=== PATIENT | female | born 1950 | race Caucasian/White ===

== ENCOUNTER 2018-12-03 19:50 | Emergency (ER) | payer SELFPAY ==
[~2018-12-03 19:50] MED LIST: LAMO25TA8 PO; LEVO75TA5 PO; TOPI25TA10 PO
[2018-12-04] MEDS ORDERED: VENL150T PO (17:58)
[2018-12-04] MEDS ORDERED: ERGO500013 PO (17:58)
[2018-12-04] MEDS ORDERED: LAMO200T2 PO (17:59)
[2018-12-04] MEDS ORDERED: LOSA100T15 PO (17:59)
[2018-12-04] MEDS ORDERED: RANI300T PO (17:59)
[2018-12-04] MEDS ORDERED: PANT40TA4 PO (17:59)
[2018-12-04] MEDS ORDERED: MONT10TA24 PO (18:00)
[2018-12-04] MEDS ORDERED: CARI1.5C PO (18:00)
[2018-12-04] MEDS ORDERED: LEVO75TA5 PO (18:00)
== END 2018-12-03 20:00 | disposition left against medical advice (07) ==
LOC: E/R 19:50
DX: Z53.21 Procedure and treatment not carried out due to patient leaving prior to being seen by health care provider (principal)

== ENCOUNTER 2018-12-04 17:14 | Inpatient (IN) | payer MEDICARE, OTHER ==
[~2018-12-04] VITALS: Ht 160 cm; Wt 65.5 kg
[2018-12-04 17:19] VITALS: Ht 160 cm; Wt 65.5 kg
[2018-12-04] MEDS ORDERED: PIPER-TAZO 3.375 GM IV (PMX) 100 ML IVPB STA (17:39)
[2018-12-04] MEDS ORDERED: morphine 4 MG/ML VIAL IV STA (17:39)
[2018-12-04] MEDS ORDERED: SOD CHLORIDE 0.9% 1,000 ML IV STA (17:39)
[2018-12-04] MEDS ORDERED: ONDANSETRON 4 MG INJ IV STA (17:39)
[2018-12-04] MEDS ORDERED: ERGO500013 PO (17:58)
[2018-12-04] MEDS ORDERED: VENL150T PO (17:58)
[2018-12-04] MEDS ORDERED: LOSA100T15 PO (17:59)
[2018-12-04] MEDS ORDERED: RANI300T PO (17:59)
[2018-12-04] MEDS ORDERED: LAMO200T2 PO (17:59)
[2018-12-04] MEDS ORDERED: PANT40TA4 PO (17:59)
[2018-12-04] MEDS ORDERED: CARI1.5C PO (18:00)
[2018-12-04] MEDS ORDERED: LEVO75TA5 PO (18:00)
[2018-12-04] MEDS ORDERED: MONT10TA24 PO (18:00)
[2018-12-04] MEDS ORDERED: SOD CHLORIDE 0.9% 100 ML ONE (19:28)
[2018-12-04] MEDS ORDERED: IOHEXOL 300MG/ML 150 ML BTL ONE (19:28)
[2018-12-04] MEDS ORDERED: ACETAMINOPHEN 325 MG TAB PO PRN (20:00)
[2018-12-04] MEDS ORDERED: ONDANSETRON 4 MG INJ IV PRN (20:00)
--- NOTE | 2018-12-04 20:39 | ERD ---
ER Documentation Chief Complaint Chief Complaint abd pain x 4 days , sent by pmd for burst appendix per ct done today HPI 68-year-old female presents to the emergency room with 4 to 5 days of abdominal pain to the right lower quadrant. She did CT today that showed possible perforated appendicitis. The patient notes some mild discomfort that is 5 out of 10 to the right lower quadrant. No significant fevers. Patient describes no significant nausea or vomiting or constipation. No prior abdominal surgical history. ROS All systems reviewed and are negative except as per history of present illness. Medications Home Meds Reported Medications Cariprazine HCl (Vraylar) 1.5 Mg Capsule, 1.5 MG PO DAILY, CAP 12/04/18 Montelukast Sodium* (Montelukast Sodium*) 10 Mg Tablet, 10 MG PO QHS, #30 TAB 12/04/18 Levothyroxine Sodium* (Levothyroxine Sodium*) 75 Mcg Tablet, 75 MCG PO BEFORE BREAKFAST, #30 TAB 12/04/18 Pantoprazole* (Pantoprazole*) 40 Mg Tablet.dr, 40 MG PO AC BREAKFAST, TAB 12/04/18 Lamotrigine* (Lamotrigine*) 200 Mg Tablet, 200 MG PO BID, TAB 12/04/18 Ranitidine Hcl* (Ranitidine Hcl*) 300 Mg Tablet, 300 MG PO HS, #30 TAB 12/04/18 Losartan Potassium* (Losartan Potassium*) 100 Mg Tablet, 100 MG PO DAILY, TAB 12/04/18 Venlafaxine Hcl* (Venlafaxine Hcl ER*) 150 Mg Tab.er.24, 150 MG PO BID, TAB.SA 12/04/18 Ergocalciferol (Vitamin D2) (VITAMIN D2) 50,000 Unit Capsule, 81363 UNIT PO Q SUN, CAP 12/04/18 Discontinued Reported Medications Topiramate* (Topiramate*) 25 Mg Tablet, 50 MG PO QPM 07/19/15 Lamotrigine* (Lamotrigine*) 25 Mg Tablet, 50 MG PO DAILY 07/19/15 Levothyroxine Sodium* (Levothyroxine Sodium*) 75 Mcg Tablet, 75 MCG PO AC BREAKFAST, TAB 05/07/14 Allergies Allergies: Coded Allergies: Sulfa (Sulfonamide Antibiotics) (Verified Allergy, Intermediate, RASH, 12/04/18) PMhx/Soc History of Surgery: Yes (TONSILLECTOMY) Anesthesia Reaction: No Hx Neurological Disorder: No Hx Respiratory Disorders: No Hx Cardiac Disorders: No Hx Psychiatric Problems: Yes (DEPRESSION) Hx Miscellaneous Medical Probl: No Hx Alcohol Use: Yes (1 GLASS OF WINE DAILY) Hx Substance Use: No Hx Tobacco Use: No Smoking Status: Never smoker FmHx Family History: No diabetes Physical Exam Vitals Vital Signs Date Temp Pulse Resp B/P (MAP) Pulse Ox O2 O2 Flow FiO2 Time Delivery Rate 12/04/18 99.0 78 16 129/68 98 Room Air 19:41 (88) 12/04/18 98.5 77 14 113/65 98 Room Air 18:39 (81) 12/04/18 98.1 84 18 140/63 98 17:19 (88) Physical Exam General: Well developed, well nourished, no acute distress Head: Normocephalic, atraumatic. Eyes: Pupils equally reactive, EOM intact ENT: Moist mucous membranes Neck: Supple, no lymphadenopathy Respiratory: Lungs clear bilaterally, no distress Cardiovascular: RRR, no murmurs, rubs, or gallops Abdominal: Soft, focal tenderness and guarding at McBurney's point : Deferred MSK: No edema, no unilateral swelling, 5/5 strength Neurologic: Alert and oriented, moving all extremities, normal speech, no focal weakness, no cerebellar signs Skin: No rash Psych: Normal mood Result Diagram: 12/04/18 1754 12/04/18 175 Results 24 hrs Laboratory Tests Test 12/04/18 17:54 White Blood Count 8.4 10^3/ul Red Blood Count 3.56 10^6/ul Hemoglobin 11.3 g/dl Hematocrit 32.7 % Mean Corpuscular Volume 91.9 fl Mean Corpuscular Hemoglobin 31.7 pg Mean Corpuscular Hemoglobin Concent 34.6 g/dl Red Cell Distribution Width 11.3 % Platelet Count 300 10^3/UL Mean Platelet Volume 9.7 fl Immature Granulocytes % 1.100 % Neutrophils % 69.9 % Lymphocytes % 15.2 % Monocytes % 11.3 % Eosinophils % 1.7 % Basophils % 0.8 % Nucleated Red Blood Cells % 0.0 /100WBC Immature Granulocytes # 0.090 10^3/ul Neutrophils # 5.9 10^3/ul Lymphocytes # 1.3 10^3/ul Monocytes # 1.0 10^3/ul Eosinophils # 0.1 10^3/ul Basophils # 0.1 10^3/ul Nucleated Red Blood Cells # 0.0 10^3/ul Prothrombin Time 13.9 Sec Prothrombin Time Ratio 1.1 INR International Normalized Ratio 1.06 Activated Partial Thromboplast Time 35.6 Sec Sodium Level 135 mmol/L Potassium Level 3.8 mmol/L Chloride Level 100 mmol/L Carbon Dioxide Level 26 mmol/L Anion Gap 9 Blood Urea Nitrogen 14 mg/dl Creatinine 0.66 mg/dl Est Glomerular Filtrat Rate mL/min > 60 mL/min Glucose Level 78 mg/dl Calcium Level 8.8 mg/dl Total Bilirubin 0.5 mg/dl Direct Bilirubin 0.00 mg/dl Indirect Bilirubin 0.5 mg/dl Aspartate Amino Transf (AST/SGOT) 36 IU/L Alanine Aminotransferase (ALT/SGPT) 72 IU/L Alkaline Phosphatase 144 IU/L Total Protein 6.5 g/dl Albumin 3.7 g/dl Globulin 2.80 g/dl Albumin/Globulin Ratio 1.32 Lipase 58 U/L Current Medications Medications Dose Sig/Lori Start Time Status Last (Trade) Ordered Route PRN Stop Time Admin Dose Reason Admin Sodium 1,000 ml @ Q1H STAT 12/04/18 DC 12/04/18 Chloride 1,000 mls/hr IV 17:39 18:23 12/04/18 18:38 Morphine 4 mg ONCE STAT 12/04/18 DC 12/04/18 Sulfate IV 17:39 18:24 (morphine) 12/04/18 17:40 Ondansetron 4 mg ONCE STAT 12/04/18 DC 12/04/18 HCl (Zofran IV 17:39 18:23 Inj) 12/04/18 17:40 Piperacillin 100 ml @ ONCE STAT 12/04/18 DC 12/04/18 Sod/ 200 mls/hr IVPB 17:39 18:24 Tazobactam 12/04/18 18:08 Sod IV Flush 10 ml STK-MED 12/04/18 DC (NS 10 ml) ONCE .ROUTE 19:12/04/18 19:29 Sodium 100 ml @ ud STK-MED 12/04/18 DC Chloride ONCE .ROUTE 19:28 12/04/18 19:29 Iohexol 150 ml STK-MED 12/04/18 DC (Omnipaque ONCE .ROUTE 19:28 300mg/ ml) 12/04/18 19:29 Ondansetron 4 mg BRIDGE ORDER 12/04/18 HCl (Zofran PRN IV 20:00 Inj) NAUSEA/VOMITI 12/05/18 19:59 NG 650 mg ER BRIDGE 12/04/18 Acetaminophen PRN PO 20:00 (Tylenol .MILD PAIN 12/05/18 19:59 Tab) 1-3 OR TEMP Procedures/MDM EKG, MONITORS, & DIAGNOSTIC IMAGING: CT with IV contrast IMPRESSION: Nonvisualization appendix. Right pelvic abscess likely sequela of ruptured appendicitis or right-sided diverticulitis. No gross pneumoperitoneum or ascites. No other collection seen. LAB INTERPRETATION: I reviewed the laboratory testing and it shows [no evidence of acute process] MEDICAL DECISION MAKING: Patient had a CAT scan that was faxed to us showing evidence of possible perforated appendicitis though this was without contrast. Recommendation was for repeat with IV contrast. Patient does have focal tenderness the right lower quadrant. ER COURSE: * Patient was n.p.o. IV fluids and antibiotics provided. CT with IV contrast obtained showing evidence of pelvic abscess likely secondary to perforated appendicitis. * General surgeon was notified, likely IR drainage appropriate. CONSULTATION: : Dr. Finch, General surgeon DISPOSITION PLAN: Medical surgical admission Accepting care team and consultations: I discussed the current laboratory data, diagnostic imaging and emergency care provided. Admitting team: Dr. Castro Admitting team indication: Insurance directed Departure Diagnosis: Primary Impression: Acute perforated appendicitis Condition: Stable VI STOREY MD December 04, 2018 20:39
--- NOTE | 2018-12-04 21:04 | HP ---
Date/Time of Note Date/Time of Note DATE: 12/04/18 TIME: 21:04 Assessment/Plan VTE Prophylaxis SCD applied (from Nsg): Yes Pharmacological prophylaxis: NA/contraindicated Pharm contraindication: low risk/ambulating Lines/Catheters IV Catheter Type (from Nrsg): Saline Lock Assessment/Plan Hospital Course This is a 68-year female being admitted to the [facility] floor for: #1 right lower quadrant pain: CT of the abdomen pelvis shows: Nonvisualization appendix. Right pelvic abscess likely sequela of ruptured appendicitis or right- sided diverticulitis. No gross pneumoperitoneum or ascites. No other collection seen. At the current time we will keep the patient n.p.o. Pain management. Broad-spectrum antibiotics of Zosyn. General surgery is Maco been consulted by the ED. #2 hypertension: We will resume patient's home medications as clinically indicated #3 hypothyroidism: Continue with thyroxine, check TSH #4 GERD: Continue PPI, H2 melissa #5 questionable mood disorder: We will need to confirm with the patient in the a.m. as well as her meds #6 DVT GI prophylaxis: SCDs, home meds Protonix/H2 melissa Further treatment strategy will be implemented as per the clinical course Result Diagram: 12/04/18 1754 12/04/18 1754 Results 24hrs Laboratory Tests Test 12/04/18 17:54 White Blood Count 8.4 Red Blood Count 3.56 L Hemoglobin 11.3 L Hematocrit 32.7 L Mean Corpuscular Volume 91.9 Mean Corpuscular Hemoglobin 31.7 Mean Corpuscular Hemoglobin Concent 34.6 Red Cell Distribution Width 11.3 L Platelet Count 300 Mean Platelet Volume 9.7 Immature Granulocytes % 1.100 H Neutrophils % 69.9 Lymphocytes % 15.2 Monocytes % 11.3 H Eosinophils % 1.7 Basophils % 0.8 Nucleated Red Blood Cells % 0.0 Immature Granulocytes # 0.090 H Neutrophils # 5.9 Lymphocytes # 1.3 Monocytes # 1.0 H Eosinophils # 0.1 Basophils # 0.1 Nucleated Red Blood Cells # 0.0 Prothrombin Time 13.9 Prothrombin Time Ratio 1.1 INR International Normalized Ratio 1.06 Activated Partial Thromboplast Time 35.6 H Sodium Level 135 Potassium Level 3.8 Chloride Level 100 Carbon Dioxide Level 26 Anion Gap 9 Blood Urea Nitrogen 14 Creatinine 0.66 Est Glomerular Filtrat Rate mL/min > 60 Glucose Level 78 Calcium Level 8.8 Total Bilirubin 0.5 Direct Bilirubin 0.00 Indirect Bilirubin 0.5 Aspartate Amino Transf (AST/SGOT) 36 Alanine Aminotransferase (ALT/SGPT) 72 H Alkaline Phosphatase 144 H Total Protein 6.5 Albumin 3.7 Globulin 2.80 Albumin/Globulin Ratio 1.32 Lipase 58 HPI/ROS Admit Date/Time Admit Date/Time Hx of Present Illness Chief complaint: Abdominal pain since last , fevers This is a six 8-year female who presented to the emergency department with complaints of abdominal pain since last . Patient pain on the right lower quadrant. She reported that she also developed some fevers. She followed up with her primary care doctor who recommended to have a CT done. The CT that was done showed possible perforated appendicitis. Patient did report mild discomfort that is 5 out of 10 in her right lower quadrant and she also had some referred pain on her left side as well. She denied any vaginal bleeding or nausea vomiting or diarrhea. Allergies: Sulfa Medications: See RACHAEL Const: As per HPI Eyes : No pain discharge or redness or change in visual acuity ENT: No pain, sore throat, congestion, congestion, dysphagia or discharge Respiratory: No shortness of breath, cough, sputum, wheezing, or pleuritic pain Cardiovascular: No chest pain, palpitation, PND, or edema GI : As per HPI Genitourinary: No dysuria, hematuria, flank pain , discharge or CVA tenderness Musculoskeletal: No joint pain, back pain, neck pain, restricted range of motion in neck or joints Skin: No rash, bruising or hives Neuro: No headache, dizziness, syncope, seizure, focal weakness Endocrine: No polyuria, polydipsia, temperature intolerance Psych: No hallucination, depression, anxiety or suicidal ideation PMH/Family/Social Past Medical History Hypertension, hypothyroidism, GERD, Medications Current Medications Ondansetron HCl (Zofran Inj) 4 mg BRIDGE ORDER PRN IV NAUSEA/VOMITING; Start 12/04/18 at 20:00; Stop 12/05/18 at 19:59 Acetaminophen (Tylenol Tab) 650 mg ER BRIDGE PRN PO .MILD PAIN 1-3 OR TEMP; Start 12/04/18 at 20:00; Stop 12/05/18 at 19:59 Coded Allergies: Sulfa (Sulfonamide Antibiotics) (Verified Allergy, Intermediate, RASH, 12/04/18) piperacillin (Verified Allergy, Unknown, 12/05/18) tazobactam (Verified Allergy, Unknown, 12/05/18) Past Surgical History Cervical spine surgery, right knee surgery Family History Significant Family History: no pertinent family hx Social History Alcohol Use: none Smoking Status: Never smoker Drug Use: none Exam/Review of Systems Vital Signs Vitals Vital Signs Date Temp Pulse Resp B/P (MAP) Pulse Ox O2 O2 Flow FiO2 Time Delivery Rate 12/04/18 17 114/78 100 Room Air 20:41 (90) 12/04/18 99.0 78 19:41 Exam Exam General: Patient is currently lying in bed she does not appear to be in any acute distress The patient is alert oriented -3 lying comfortably in bed. HEENT: Atraumatic, normocephalic. The pupils are equal, round and reactive. Extraocular motor are intact Neck: Supple with full range of motion. No rigidity or meningismus Chest: Nontender Lungs: Clear to auscultation bilaterally no crackles rales or wheezing Heart: Normal S1-S2, Regular rhythm and rate. No murmur, S3, or S4 Abdomen: Soft, right lower quadrant tenderness palpation, mild guarding, normal bowel sounds. Extremities: Normal to inspection, no edema no cyanosis Neurologic: Normal mental status, speech normal, cranial nerves II through XII are intact, motor and sensory are intact, Additional Comments PROCEDURE: CT abdomen and pelvis with contrast. CLINICAL INDICATION: Abdominal pain. Ruptured appendicitis. TECHNIQUE: CT scan of the abdomen and pelvis without oral contrast was performed and is reconstructed at 2.5 mm contiguous axial intervals from the dome of the diaphragm to the inferior pubic rami.. The patient was scanned with intravenous contrast. Sagittal and coronal reformatted images were obtained from the axial source images. The calculated radiation dose measures 367 mGy centimeters. The CTDI measures 7.0 mGy. Individualized dose optimization technique was used for the performance of this exam. This included 1. Automated exposure control. 2. Adjustment of the mA and / or kV according to the patient's size. 3. Use of iterative reconstructed technique. DICOM images are available. COMPARISON: None. FINDINGS: The lung bases are clear of any infiltrate or nodule. No effusion is seen. Patient is status post bilateral augmentation mammoplasty. The liver is of normal size, contour and attenuation with no mass or ductal dilatation. No gallstones are visualized. No splenic, adrenal or pancreatic abnormalities present. Kidneys are of normal size and contour. No hydronephrosis, calculus or mass Is seen. Ureters are of normal course and caliber with no stone. No bladder mass or stone is present. there is a calcified fibroid within an atrophic postmenopausal uterus. There is no aneurysm. No adenopathy is present. No bowel mass or obstruction is present. The appendix is not visualized. There is an abscess posterior lateral to the cecum and the right radha pelvis which measures 4 cm TR by 4.5 cm AP by 4.5 cm CC. There is stranding of the surrounding fat. This most likely represents sequela of ruptured appendicitis, however, perforation of right-sided diverticulitis cannot be ruled out. No other abscess is seen and no ascites or pneumoperitoneum is visualized. Senescent degenerative changes are seen in the lower lumbar spine. IMPRESSION: Nonvisualization appendix. Right pelvic abscess likely sequela of ruptured appendicitis or right-sided diverticulitis. No gross pneumoperitoneum or as cites. No other collection seen. .Cornelio Rowe MD, MD Date Time Electronically viewed and signed by .Cornelio Rowe MD, on 12/04/2018 19:37 .A/ CC: VI STOREY MD [id number] SAJAN GRADY December 04, 2018 21:04
--- NOTE | 2018-12-04 21:21 | CONS ---
Assessment/Plan Assessment/Plan Hospital Course (Demo Recall) CT scan showed 4.5 x 4.5 x 4.5 collection in the right lower quadrant consistent with perforated appendicitis possible perforated diverticulitis. No other intra-abdominal pathology no free fluid no free air. White count was found to be normal. Problems: (1) Abscess, periappendiceal Status: Acute Assessment/Plan (Daily) Periappendiceal abscess patient will benefit from percutaneous drainage by invasive radiologist. We discussed other options like possibility of surgery if drainage does not succeed. Patient understands risk and benefits. Will probably need to repeat colonoscopy in few weeks. We discussed the possibility of interval appendectomy as well. We will keep n.p.o. from midnight meanwhile patient cannot get clears. Antibiotics started. Consultation Date/Type/Reason Admit Date/Time Date of Consultation: December 04, 2018 Type of Consult Surgical Date/Time of Note DATE: 12/04/18 TIME: 21:12 Hx of Present Illness The patient is a 68-year-old female started to experience mild right lower quadrant discomfort more than 10 days ago. 6 days ago she started to feel really bad with significant right lower quadrant pain chills and fever. She self medicated herself with the ibuprofen for the next few days, but after consulting with her primary care physician Dr. Alcantara she was advised to undergo CT scan of the abdomen. CT scan was initially performed yesterday without contrast and showed the mass in the right lower quadrant. Dr. Alcantara suggested her to go to emergency room as soon as possible. Patient was admitted to the emergency room with CT scan was repeated that showed large abscess in the right lower quadrant consistent with periappendicular abscess. Constitutional: chills, febrile Eyes: no complaints ENT: no complaints Respiratory: no complaints Cardiovascular: no complaints Gastrointestinal: pain, other (Last colonoscopy was 2 years ago which was reportedly normal) Genitourinary: no complaints Musculoskeletal: back pain, neck pain, restricted range of motion Skin: no complaints Neurologic: no complaints Endocrine: no complaints Lymphatic: no complaints Psychological: no complaints, nl mood/affect Immunologic: no complaints Past Medical History Medical History: other (Chronic cervical spine problems) Home Meds Reported Medications Cariprazine HCl (Vraylar) 1.5 Mg Capsule, 1.5 MG PO DAILY, CAP 12/04/18 Montelukast Sodium* (Montelukast Sodium*) 10 Mg Tablet, 10 MG PO QHS, #30 TAB 12/04/18 Levothyroxine Sodium* (Levothyroxine Sodium*) 75 Mcg Tablet, 75 MCG PO BEFORE BREAKFAST, #30 TAB 12/04/18 Pantoprazole* (Pantoprazole*) 40 Mg Tablet.dr, 40 MG PO AC BREAKFAST, TAB 12/04/18 Lamotrigine* (Lamotrigine*) 200 Mg Tablet, 200 MG PO BID, TAB 12/04/18 Ranitidine Hcl* (Ranitidine Hcl*) 300 Mg Tablet, 300 MG PO HS, #30 TAB 12/04/18 Losartan Potassium* (Losartan Potassium*) 100 Mg Tablet, 100 MG PO DAILY, TAB 12/04/18 Venlafaxine Hcl* (Venlafaxine Hcl ER*) 150 Mg Tab.er.24, 150 MG PO BID, TAB.SA 12/04/18 Ergocalciferol (Vitamin D2) (VITAMIN D2) 50,000 Unit Capsule, 97303 UNIT PO Q SUN, CAP 12/04/18 Discontinued Reported Medications Topiramate* (Topiramate*) 25 Mg Tablet, 50 MG PO QPM 07/19/15 Lamotrigine* (Lamotrigine*) 25 Mg Tablet, 50 MG PO DAILY 07/19/15 Levothyroxine Sodium* (Levothyroxine Sodium*) 75 Mcg Tablet, 75 MCG PO AC BREAKFAST, TAB 05/07/14 Medications Current Medications Ondansetron HCl (Zofran Inj) 4 mg BRIDGE ORDER PRN IV NAUSEA/VOMITING; Start 12/04/18 at 20:00; Stop 12/05/18 at 19:59 Acetaminophen (Tylenol Tab) 650 mg ER BRIDGE PRN PO .MILD PAIN 1-3 OR TEMP; Start 12/04/18 at 20:00; Stop 12/05/18 at 19:59 Sodium Chloride 1,000 ml @ 80 mls/hr [id number] IV ; Start 12/04/18 at 21:02; Status UNV IV Flush (NS 3 ml) 3 ml PER PROTOCOL IV ; Start 12/04/18 at 21:30; Status UNV Ondansetron HCl (Zofran Inj) 4 mg Q6H PRN IV NAUSEA/VOMITING; Start 12/04/18 at 21:30; Status UNV Acetaminophen (Tylenol Tab) 650 mg Q6H PRN PO .PAIN 1-3 OR TEMP; Start 12/04/18 at 21:30; Status UNV Morphine Sulfate (morphine) 2 mg Q4H PRN IV .SEVERE PAIN 7-10; Start 12/04/18 at 21:30; Status UNV Docusate Sodium (Colace) 100 mg Q12H PRN PO .CONSTIPATION; Start 12/04/18 at 21:30; Status UNV Bisacodyl (Dulcolax) 5 mg DAILY PRN PO .CONSTIPATION; Start 12/04/18 at 21:30; Status UNV Piperacillin Sod/ Tazobactam Sod 100 ml @ 200 mls/hr Q6 IVPB ; Start 12/05/18 at 00:00; Status UNV Allergies: Coded Allergies: Sulfa (Sulfonamide Antibiotics) (Verified Allergy, Intermediate, RASH, 12/04/18) Past Surgical History Past Surgical Hx: noncontributory Family History Significant Family History: other (Patient has 3 brothers all of them from colon cancer.) Social History Smoking Status: Never smoker Exam/Review of Systems Exam Vitals Vital Signs Date Temp Pulse Resp B/P (MAP) Pulse Ox O2 O2 Flow FiO2 Time Delivery Rate 12/04/18 92 14 129/91 100 Room Air 21:09 (104) 12/04/18 99.0 19:41 Constitutional: alert, oriented, well developed Psych: no complaints, nl mood/affect Head: normocephalic, atraumatic Eyes: nl conjunctiva, EOMI, nl lids, nl sclera, PERRL ENMT: nl external ears & nose, nl lips & teeth, nl nasal mucosa & septum Neck: supple, non-tender Respiratory: clear to auscultation, normal air movement Cardiovascular: regular rate and rhythm, nl pulses Gastrointestinal: soft, nl liver, spleen, other (Mild fullness and tenderness in the right lower quadrant without peritoneal signs) Musculoskeletal: nl extremities to inspection, nl gait and stance Extremities: normal pulses Neurological: QUALITY LAB ASSOC II-XII intact, nl mental status, nl speech, nl strength Skin: nl turgor; No rash or lesions Lymph: nl lymph nodes Results Result Diagram: 12/04/18 1754 12/04/18 1754 Results 24hrs Laboratory Tests Test 12/04/18 17:54 White Blood Count 8.4 Red Blood Count 3.56 L Hemoglobin 11.3 L Hematocrit 32.7 L Mean Corpuscular Volume 91.9 Mean Corpuscular Hemoglobin 31.7 Mean Corpuscular Hemoglobin Concent 34.6 Red Cell Distribution Width 11.3 L Platelet Count 300 Mean Platelet Volume 9.7 Immature Granulocytes % 1.100 H Neutrophils % 69.9 Lymphocytes % 15.2 Monocytes % 11.3 H Eosinophils % 1.7 Basophils % 0.8 Nucleated Red Blood Cells % 0.0 Immature Granulocytes # 0.090 H Neutrophils # 5.9 Lymphocytes # 1.3 Monocytes # 1.0 H Eosinophils # 0.1 Basophils # 0.1 Nucleated Red Blood Cells # 0.0 Prothrombin Time 13.9 Prothrombin Time Ratio 1.1 INR International Normalized Ratio 1.06 Activated Partial Thromboplast Time 35.6 H Sodium Level 135 Potassium Level 3.8 Chloride Level 100 Carbon Dioxide Level 26 Anion Gap 9 Blood Urea Nitrogen 14 Creatinine 0.66 Est Glomerular Filtrat Rate mL/min > 60 Glucose Level 78 Calcium Level 8.8 Total Bilirubin 0.5 Direct Bilirubin 0.00 Indirect Bilirubin 0.5 Aspartate Amino Transf (AST/SGOT) 36 Alanine Aminotransferase (ALT/SGPT) 72 H Alkaline Phosphatase 144 H Total Protein 6.5 Albumin 3.7 Globulin 2.80 Albumin/Globulin Ratio 1.32 Lipase 58 Medications Medication Current Medications Ondansetron HCl (Zofran Inj) 4 mg BRIDGE ORDER PRN IV NAUSEA/VOMITING; Start 12/04/18 at 20:00; Stop 12/05/18 at 19:59 Acetaminophen (Tylenol Tab) 650 mg ER BRIDGE PRN PO .MILD PAIN 1-3 OR TEMP; Start 12/04/18 at 20:00; Stop 12/05/18 at 19:59 Sodium Chloride 1,000 ml @ 80 mls/hr [id number] IV ; Start 12/04/18 at 21:02; Status UNV IV Flush (NS 3 ml) 3 ml PER PROTOCOL IV ; Start 12/04/18 at 21:30; Status UNV Ondansetron HCl (Zofran Inj) 4 mg Q6H PRN IV NAUSEA/VOMITING; Start 12/04/18 at 21:30; Status UNV Acetaminophen (Tylenol Tab) 650 mg Q6H PRN PO .PAIN 1-3 OR TEMP; Start 12/04/18 at 21:30; Status UNV Morphine Sulfate (morphine) 2 mg Q4H PRN IV .SEVERE PAIN 7-10; Start 12/04/18 at 21:30; Status UNV Docusate Sodium (Colace) 100 mg Q12H PRN PO .CONSTIPATION; Start 12/04/18 at 21:30; Status UNV Bisacodyl (Dulcolax) 5 mg DAILY PRN PO .CONSTIPATION; Start 12/04/18 at 21:30; Status UNV Piperacillin Sod/ Tazobactam Sod 100 ml @ 200 mls/hr Q6 IVPB ; Start 12/05/18 at 00:00; Status UNV DINORA DAHL MD December 04, 2018 21:21
[2018-12-04 21:25] VITALS: BP 144/66; PULSE 92; RESP 19
[2018-12-04] MEDS ORDERED: BISACODYL (EC) 5 MG TAB PO PRN (21:30)
[2018-12-04] MEDS ORDERED: NACL 0.9% 3 ML SYG IV SCH (21:30)
[2018-12-04] MEDS ORDERED: morphine 2 MG INJ IV PRN (21:30)
[2018-12-04] MEDS ORDERED: DOCUSATE SODIUM 100 MG CAP PO PRN (21:30)
[2018-12-04] MEDS: SOD CHLORIDE 0.9% 1,000 ML IV SCH (22:28)
[2018-12-05] MEDS: PIPER-TAZO 3.375 GM IV (PMX) 100 ML IVPB SCH ×2 (00:15→05:31)
[2018-12-05 02:00] VITALS: BP 130/68; PULSE 89; RESP 18
[2018-12-05] MEDS: morphine 4 MG/ML VIAL IV PRN ×4 (03:15→20:34)
[2018-12-05] MEDS ORDERED: ALBUTEROL/IPRATROPIUM (NEB) 3 ML AMP HHN STA (06:04)
[2018-12-05] MEDS ORDERED: METHYLPREDNISOLONE 125 MG INJ IV ONE (06:30)
[2018-12-05] MEDS ORDERED: FAMOTIDINE 20 MG INJ IV ONE (06:30)
[2018-12-05] MEDS ORDERED: DIPHENHYDRAMINE 50 MG INJ IV ONE (06:30)
[2018-12-05] MEDS: metroNIDAZOLE 500 MG/NS (PMX) 100 ML IVPB SCH ×4 (08:14→18:05)
[2018-12-05 08:48] VITALS: BP 108/53; PULSE 98; RESP 20
[2018-12-05] MEDS ORDERED: FAMOTIDINE 20 MG INJ IV SCH (09:00)
[2018-12-05] MEDS: CIPROFLOXACIN 400MG/D5W 200 ML IVPB SCH ×2 (09:21→20:31)
[2018-12-05] MEDS ORDERED: DIPHENHYDRAMINE 50 MG INJ IV PRN (11:00)
--- NOTE | 2018-12-05 11:28 | PN ---
Date/Time of Note Date/Time of Note DATE: 12/05/18 TIME: 11:28 Assessment/Plan VTE Prophylaxis Risk score (from Nsg)>0 risk: 2 SCD applied (from Nsg): Yes Pharmacological prophylaxis: NA/contraindicated Pharm contraindication: low risk/ambulating Lines/Catheters IV Catheter Type (from Nrsg): Peripheral IV Assessment/Plan Hospital Course SUBJECTIVE: OBJECTIVE: Physical Exam General: Adequately build 68 year-old male lying in bed in no apparent distress. HEENT: Normocephalic, atraumatic. Eyes: Anicteric sclerae, conjunctivae clear. ENT: Nasal septum midline, oral mucosa moist. Neck supple, no JVD noticed. Respiratory: Bilaterally clear breath sounds. No use of accessory muscles of respiration. No adventitious breath sounds. Cardiovascular: S1, S2 heard. No murmurs or gallops. Abdomen: Soft and nondistended. Tenderness on the RLQ with abdominal guarding. Bowel sounds positive in all 4 quadrants. Genitourinary: Deferred. Extremities: No cyanosis, no clubbing, no edema. Peripheral pulses palpable. Neurologic: Cranial nerves II through XII grossly intact. The patient is awake, alert, and oriented. Skin: Normal skin turgor. No skin rashes. Labs & Vitals per chart ASSESSMENT & PLAN 68-year-old female with comorbidities including hypertension, hypothyroidism, and depression who came to the emergency room with chief complaint of abdominal pain. The patient visited her primary care physician for the same complaint and she had a CT scan done that showed possible perforated appendicitis. Therefore, she was referred to the emergency room. The CT scan that was done at [facility] showed right pelvic abscess likely from perforated appendicitis or right-sided diverticulitis. Patient also complained of febrile illness at home. The patient was admitted to inpatient setting. 1. Right pelvic abscess. -Status post evaluation by general surgery who recommended IR guided drainage. -Continue antimicrobials including coverage for anaerobes. -NPO. -Continue pain control. -Continue IV fluids. 2. Essential hypertension. -Continue the patient on PRN antihypertensives. 3. Hypothyroidism. -Resume Synthroid once the patient is able to tolerate oral intake. 4. GERD. -Resume oral PPI once able to tolerate oral intake. 5. Depression. -Resume antidepressants once able to tolerate oral intake. 6. Fluids, electrolytes, and nutrition. -IV fluids. 7. DVT prophylaxis. -Bilateral SCDs. 8. Plan. -Continue antimicrobials including coverage for anaerobes. -Awaiting CT guided IR drainage. The patient was seen in collaboration with . Result Diagram: 12/05/1823 12/05/18 0623 Results 24hrs Laboratory Tests Test 12/04/18 17:54 12/05/18 06:23 White Blood Count 8.4 9.3 Red Blood Count 3.56 L 3.68 L Hemoglobin 11.3 L 11.5 L Hematocrit 32.7 L 34.0 L Mean Corpuscular Volume 91.9 92.4 Mean Corpuscular Hemoglobin 31.7 31.3 Mean Corpuscular Hemoglobin Concent 34.6 33.8 Red Cell Distribution Width 11.3 L 11.6 Platelet Count 300 327 Mean Platelet Volume 9.7 10.1 Immature Granulocytes % 1.100 H 0.600 H Neutrophils % 69.9 71.4 Lymphocytes % 15.2 16.0 Monocytes % 11.3 H 10.5 Eosinophils % 1.7 1.1 Basophils % 0.8 0.4 Nucleated Red Blood Cells % 0.0 0.0 Immature Granulocytes # 0.090 H 0.060 H Neutrophils # 5.9 6.7 Lymphocytes # 1.3 1.5 Monocytes # 1.0 H 1.0 H Eosinophils # 0.1 0.1 Basophils # 0.1 0.0 Nucleated Red Blood Cells # 0.0 0.0 Prothrombin Time 13.9 Prothrombin Time Ratio 1.1 INR International Normalized Ratio 1.06 Activated Partial Thromboplast Time 35.6 H Sodium Level 135 139 Potassium Level 3.8 3.7 Chloride Level 100 106 Carbon Dioxide Level 26 26 Anion Gap 9 7 Blood Urea Nitrogen 14 9 Creatinine 0.66 0.67 Est Glomerular Filtrat Rate mL/min > 60 > 60 Glucose Level 78 92 Calcium Level 8.8 8.2 L Total Bilirubin 0.5 0.5 Direct Bilirubin 0.00 0.00 Indirect Bilirubin 0.5 0.5 Aspartate Amino Transf (AST/SGOT) 36 26 Alanine Aminotransferase (ALT/SGPT) 72 H 58 Alkaline Phosphatase 144 H 136 H Total Protein 6.5 6.1 Albumin 3.7 3.4 Globulin 2.80 2.70 Albumin/Globulin Ratio 1.32 1.25 Lipase 58 Hemoglobin A1c 4.8 Magnesium Level 2.0 Triglycerides Level 75 Cholesterol Level 107 LDL Cholesterol, Calculated 66 HDL Cholesterol 26 L Cholesterol/HDL Ratio 4.1 Thyroid Stimulating Hormone (TSH) 0.533 Exam/Review of Systems Exam Vitals Vital Signs Date Temp Pulse Resp B/P (MAP) Pulse Ox O2 O2 Flow FiO2 Time Delivery Rate 12/05/18 98.0 98 20 108/53 92 Nasal 2.0 08:48 (71) Cannula 12/05/18 21 06:18 Intake and Output 12/04/18 12/04/18 12/05/18 1515:00 23:00 07:00 IntakeIntake Total 600 ml BalanceBalance 600 ml Results Results 24hrs Laboratory Tests Test 12/04/18 17:54 12/05/18 06:23 White Blood Count 8.4 9.3 Red Blood Count 3.56 L 3.68 L Hemoglobin 11.3 L 11.5 L Hematocrit 32.7 L 34.0 L Mean Corpuscular Volume 91.9 92.4 Mean Corpuscular Hemoglobin 31.7 31.3 Mean Corpuscular Hemoglobin Concent 34.6 33.8 Red Cell Distribution Width 11.3 L 11.6 Platelet Count 300 327 Mean Platelet Volume 9.7 10.1 Immature Granulocytes % 1.100 H 0.600 H Neutrophils % 69.9 71.4 Lymphocytes % 15.2 16.0 Monocytes % 11.3 H 10.5 Eosinophils % 1.7 1.1 Basophils % 0.8 0.4 Nucleated Red Blood Cells % 0.0 0.0 Immature Granulocytes # 0.090 H 0.060 H Neutrophils # 5.9 6.7 Lymphocytes # 1.3 1.5 Monocytes # 1.0 H 1.0 H Eosinophils # 0.1 0.1 Basophils # 0.1 0.0 Nucleated Red Blood Cells # 0.0 0.0 Prothrombin Time 13.9 Prothrombin Time Ratio 1.1 INR International Normalized Ratio 1.06 Activated Partial Thromboplast Time 35.6 H Sodium Level 135 139 Potassium Level 3.8 3.7 Chloride Level 100 106 Carbon Dioxide Level 26 26 Anion Gap 9 7 Blood Urea Nitrogen 14 9 Creatinine 0.66 0.67 Est Glomerular Filtrat Rate mL/min > 60 > 60 Glucose Level 78 92 Calcium Level 8.8 8.2 L Total Bilirubin 0.5 0.5 Direct Bilirubin 0.00 0.00 Indirect Bilirubin 0.5 0.5 Aspartate Amino Transf (AST/SGOT) 36 26 Alanine Aminotransferase (ALT/SGPT) 72 H 58 Alkaline Phosphatase 144 H 136 H Total Protein 6.5 6.1 Albumin 3.7 3.4 Globulin 2.80 2.70 Albumin/Globulin Ratio 1.32 1.25 Lipase 58 Hemoglobin A1c 4.8 Magnesium Level 2.0 Triglycerides Level 75 Cholesterol Level 107 LDL Cholesterol, Calculated 66 HDL Cholesterol 26 L Cholesterol/HDL Ratio 4.1 Thyroid Stimulating Hormone (TSH) 0.533 Medications Medication Current Medications Sodium Chloride 1,000 ml @ 80 mls/hr [id number] IV Last administered on 12/04/18at 22:28; Admin Dose 80 MLS/HR; Start 12/04/18 at 21:02 IV Flush (NS 3 ml) 3 ml PER PROTOCOL IV ; Start 12/04/18 at 21:30 Ondansetron HCl (Zofran Inj) 4 mg Q6H PRN IV NAUSEA/VOMITING; Start 12/04/18 at 21:30 Acetaminophen (Tylenol Tab) 650 mg Q6H PRN PO .PAIN 1-3 OR TEMP; Start 12/04/18 at 21:30 Docusate Sodium (Colace) 100 mg Q12H PRN PO .CONSTIPATION; Start 12/04/18 at 21:30 Bisacodyl (Dulcolax) 5 mg DAILY PRN PO .CONSTIPATION; Start 12/04/18 at 21:30 Morphine Sulfate (morphine) 4 mg Q4H PRN IV .SEVERE PAIN 7-10 Last administered on 12/05/18at 09:21; Admin Dose 4 MG; Start 12/04/18 at 21:30 Miscellaneous Information Patients own medicat... BID@10,16 XX ; Start 12/05/18 at 10:00 Diphenhydramine HCl (Benadryl) 50 mg Q6H PRN IV ALLERGIC REACTION; Start 12/05/18 at 11:00 Ciprofloxacin/ Dextrose 200 ml @ 200 mls/hr Q12 IVPB Last administered on 12/05/18at 09:21; Admin Dose 200 MLS/HR; Start 12/05/18 at 09:00 Metronidazole 100 ml @ 100 mls/hr Q6 IVPB Last administered on 12/05/18at 08:14; Admin Dose 100 MLS/HR; Start 12/05/18 at 08:00 Levothyroxine Sodium (Synthroid) 75 mcg BEFORE BREAKFAST PO ; Start 12/06/18 at 07:00 Pantoprazole (Protonix Tab) 40 mg AC BREAKFAST PO ; Start 12/06/18 at 07:30 Ranitidine HCl (Zantac) 300 mg HS PO ; Start 12/05/18 at 21:00 STEVAN ZHANG NP December 05, 2018 11:28
[2018-12-05] MEDS ORDERED: MIDAZOLAM 1 MG/ML 2 ML INJ ONE (11:31)
[2018-12-05] MEDS ORDERED: LIDOCAINE 1% (MDV) 20 ML INJ ONE (11:31)
[2018-12-05] MEDS ORDERED: SOD CHLORIDE 0.9% 500 ML ONE (11:31)
[2018-12-05] MEDS ORDERED: FENTAnyl 50 MCG/ML VIAL ONE (11:31)
[2018-12-05] MEDS ORDERED: hydrALAzine 20 MG INJ IV PRN (12:00)
[2018-12-05] MEDS ORDERED: LIDOCAINE 1% (MPF) 5 ML VIAL ONE (12:14)
[2018-12-05 13:45] VITALS: BP 105/59; PULSE 64; RESP 16
[2018-12-05] MEDS: SOD CHLORIDE 0.9% 1,000 ML IV SCH ×2 (13:59→22:02)
--- NOTE | 2018-12-05 15:51 | PN ---
Date/Time of Note Date/Time of Note DATE: 12/05/18 TIME: 15:50 Assessment/Plan Lines/Catheters IV C[facility]ter Type (from [facility]): Peripheral IV Assessment/Plan Chief Complaint/Hosp Course 68-year-old female with a periappendiceal abscess was drained today under CT guidance. Assessment/Plan Plan is to advance diet continue antibiotics monitor the output of the drain Subjective 24 Hr Interval Summary Patient with a periappendiceal abscess was CT-guided drainage today. Constitutional: no complaints Feeding: advancing diet Exam/Review of Systems Vital Signs Vitals Vital Signs Date Temp Pulse Resp B/P (MAP) Pulse Ox O2 O2 Flow FiO2 Time Delivery Rate 12/05/18 97.8 64 16 105/59 96 Room Air 13:45 (74) 12/05/18 2.0 08:48 12/05/18 21 06:18 Intake and Output 12/04/18 12/04/18 12/05/18 1515:00 23:00 07:00 IntakeIntake Total 600 ml BalanceBalance 600 ml Exam Constitutional: alert, oriented, well developed Psych: no complaints, nl mood/affect Head: normocephalic, atraumatic Eyes: nl conjunctiva, EOMI, nl lids, nl sclera ENMT: nl external ears & nose, nl lips & teeth, nl nasal mucosa & septum, mucosa pink and moist Neck: supple, non-tender Respiratory: clear to auscultation, normal air movement Cardiovascular: regular rate and rhythm, nl pulses Gastrointestinal: soft, nl liver, spleen, non-tender, other (Drain in the right lower quadrant drains serosanguineous) Musculoskeletal: nl extremities to inspection, nl gait and stance Extremities: normal pulses Neurological: UG DESIGNER II-XII intact, nl mental status, nl speech, nl strength Skin: nl turgor, rash or lesions Lymph: nl lymph nodes Results Result Diagram: 12/05/1862212/05/18622 DNIORA DAHL MD December 05, 2018 15:51
[2018-12-05 19:50] VITALS: BP 100/57; PULSE 97; RESP 17
[2018-12-05] MEDS: RANITIDINE 150 MG TAB PO SCH (20:32)
[2018-12-05] MEDS ORDERED: HYDROmorphONE 1 MG/ML SYG IV PRN (23:00)
[2018-12-06] MEDS: LAMOTRIGINE 100 MG TAB PO SCH ×3 (00:26→21:00)
[2018-12-06] MEDS: metroNIDAZOLE 500 MG/NS (PMX) 100 ML IVPB SCH ×4 (00:27→17:25)
[2018-12-06] MEDS: VENLAFAXINE (XR) 75 MG CAP PO SCH ×3 (00:27→21:00)
[2018-12-06 02:10] VITALS: BP 105/58; PULSE 81; RESP 18
[2018-12-06] MEDS: ONDANSETRON 4 MG INJ IV PRN ×2 (02:23→22:30)
[2018-12-06] MEDS: SOD CHLORIDE 0.9% 1,000 ML IV SCH ×2 (06:15→23:02)
[2018-12-06] MEDS: PANTOPRAZOLE (EC) 40 MG TAB PO SCH (06:31)
[2018-12-06] MEDS: LEVOTHYROXINE 75 MCG TAB PO SCH (06:31)
[2018-12-06 07:32] VITALS: BP 110/56; PULSE 82; RESP 17
[2018-12-06] MEDS: CIPROFLOXACIN 400MG/D5W 200 ML IVPB SCH ×2 (09:12→21:04)
--- NOTE | 2018-12-06 11:27 | PSY ---
Date/Time of Note Date/Time of Note DATE: 12/06/18 TIME: 11:11 Psychiatric Subjective Eval Consent Pt consented to telemedicine: No Subjective Evaluation Patient location: inpatient Chief Complaint: abd pain x 4 days , sent by pmd for burst appendix per ct done today History of present illness Patient is a 68-year old female who is currently admitted on [facility] with complaints of abdominal pain, on the right lower quadrant. On a [id number] evaluation, patient reports she has a long history of depression and has been treated by her outside psychiatrist with Effexor Lamictal and a new experimental drug.Patient denies suicidal ideation, and contracted for safety, states her symptoms of depression is managed with her current medications. Past psychiatric history Long history of depression Hospitalization: other Medical history Problems Medical Problems: (1) Acute perforated appendicitis Status: Acute (2) Headache Status: Acute (3) Laceration Status: Acute (4) Patient left before triage assessment Status: Acute (5) Patient left without being seen Status: Acute Allergies: Coded Allergies: Sulfa (Sulfonamide Antibiotics) (Verified Allergy, Intermediate, RASH, 12/04/18) piperacillin (Verified Allergy, Unknown, 12/05/18) tazobactam (Verified Allergy, Unknown, 12/05/18) Substance Abuse Substance use: other Substance abuse history: No Prior substance abuse treatmen: No Social History Marital status: other DPA/Conservatorship: No Psychiatric Objective Eval Review of Systems: Review of Systems: Not Applicable Physical Examination: Physical Examination: Not Applicable Mental Status Examination: Appearance: Poor Hygiene Eye Contact: Fair Psychomotor Activity: Slow Behavior: Cooperative Speech: Clear, Soft AFFECT: Flat Mood: Depressed Though Process: Linear Thought Content: Normal Orientation: x4 Cognition: Alert Insight: Mild Judgement: Mild Attention Span: Distractible Laboratory Results Laboratory Tests Test 12/04/18 17:54 12/05/18 06:23 12/06/18 06:47 White Blood Count 8.4 10^3/ul 9.3 10^3/ul 14.3 10^3/ul Red Blood Count 3.56 10^6/ul 3.68 10^6/ul 3.27 10^6/ul Hemoglobin 11.3 g/dl 11.5 g/dl 10.4 g/dl Hematocrit 32.7 % 34.0 % 30.3 % Mean Corpuscular Volume 91.9 fl 92.4 fl 92.7 fl Mean Corpuscular Hemoglobin 31.7 pg 31.3 pg 31.8 pg Mean Corpuscular 34.6 g/dl 33.8 g/dl 34.3 g/dl Hemoglobin Concent Red Cell Distribution Width 11.3 % 11.6 % 11.5 % Platelet Count 300 10^3/UL 327 10^3/UL 319 10^3/UL Mean Platelet Volume 9.7 fl 10.1 fl 9.9 fl Immature Granulocytes % 1.100 % 0.600 % 0.700 % Neutrophils % 69.9 % 71.4 % 82.4 % Lymphocytes % 15.2 % 16.0 % 9.3 % Monocytes % 11.3 % 10.5 % 6.8 % Eosinophils % 1.7 % 1.1 % 0.2 % Basophils % 0.8 % 0.4 % 0.6 % Nucleated Red Blood Cells % 0.0 /100WBC 0.0 /100WBC 0.0 /100WBC Immature Granulocytes # 0.090 10^3/ul 0.060 10^3/ul 0.100 10^3/ul Neutrophils # 5.9 10^3/ul 6.7 10^3/ul 11.8 10^3/ul Lymphocytes # 1.3 10^3/ul 1.5 10^3/ul 1.3 10^3/ul Monocytes # 1.0 10^3/ul 1.0 10^3/ul 1.0 10^3/ul Eosinophils # 0.1 10^3/ul 0.1 10^3/ul 0.0 10^3/ul Basophils # 0.1 10^3/ul 0.0 10^3/ul 0.1 10^3/ul Nucleated Red Blood Cells # 0.0 10^3/ul 0.0 10^3/ul 0.0 10^3/ul Prothrombin Time 13.9 Sec Prothrombin Time Ratio 1.1 INR International 1.06 Normalized Ratio Activated Partial Thromboplast 35.6 Sec Time Sodium Level 135 mmol/L 139 mmol/L 141 mmol/L Potassium Level 3.8 mmol/L 3.7 mmol/L 3.5 mmol/L Chloride Level 100 mmol/L 106 mmol/L 107 mmol/L Carbon Dioxide Level 26 mmol/L 26 mmol/L 26 mmol/L Anion Gap 9 7 8 Blood Urea Nitrogen 14 mg/dl 9 mg/dl 11 mg/dl Creatinine 0.66 mg/dl 0.67 mg/dl 0.55 mg/dl Est Glomerular Filtrat > 60 mL/min > 60 mL/min > 60 mL/min Rate mL/min Glucose Level 78 mg/dl 92 mg/dl 137 mg/dl Calcium Level 8.8 mg/dl 8.2 mg/dl 8.6 mg/dl Total Bilirubin 0.5 mg/dl 0.5 mg/dl Direct Bilirubin 0.00 mg/dl 0.00 mg/dl Indirect Bilirubin 0.5 mg/dl 0.5 mg/dl Aspartate Amino 36 IU/L 26 IU/L Transf (AST/SGOT) Alanine 72 IU/L 58 IU/L Aminotransferase (ALT/SGPT) Alkaline Phosphatase 144 IU/L 136 IU/L Total Protein 6.5 g/dl 6.1 g/dl Albumin 3.7 g/dl 3.4 g/dl Globulin 2.80 g/dl 2.70 g/dl Albumin/Globulin Ratio 1.32 1.25 Lipase 58 U/L Hemoglobin A1c 4.8 % Magnesium Level 2.0 mg/dl 2.2 mg/dl Triglycerides Level 75 mg/dl Cholesterol Level 107 mg/dl LDL Cholesterol, Calculated 66 mg/dl HDL Cholesterol 26 mg/dl Cholesterol/HDL Ratio 4.1 RATIO Thyroid Stimulating 0.533 MIU/L Hormone (TSH) Erythrocyte Sedimentation Rate 80.0 mm/Hr Phosphorus Level 2.7 mg/dl C-Reactive Protein 11.5 mg/dl Assessment and Plan Assessment/Diagnosis Diagnosis Major depressive disorder severe recurrent without psychosis Recommendation/Plan Medication Management Continue current medications Multiple antipsychotics: No Discharge Disposition: Other Legal Status: Voluntary (Does not meet criteria for 5150 hold) ISRAEL PERES NP December 06, 2018 11:25
[2018-12-06 13:40] VITALS: BP 98/53; PULSE 78; RESP 18
[2018-12-06] MEDS: ACETAMINOPHEN 325 MG TAB PO PRN (14:03)
--- NOTE | 2018-12-06 14:40 | PN ---
Date/Time of Note Date/Time of Note DATE: 12/06/18 TIME: 14:37 Assessment/Plan VTE Prophylaxis Risk score (from Nsg)>0 risk: 2 SCD applied (from Nsg): Yes Pharmacological prophylaxis: NA/contraindicated Pharm contraindication: low risk/ambulating Lines/Catheters IV Catheter Type (from Nrsg): Peripheral IV Assessment/Plan Hospital Course SUBJECTIVE: Continues to complain of abdominal pain. OBJECTIVE: Physical Exam General: Adequately build 68 year-old male lying in bed in no apparent distress. HEENT: Normocephalic, atraumatic. Eyes: Anicteric sclerae, conjunctivae clear. ENT: Nasal septum midline, oral mucosa moist. Neck supple, no JVD noticed. Respiratory: Bilaterally clear breath sounds. No use of accessory muscles of respiration. No adventitious breath sounds. Cardiovascular: S1, S2 heard. No murmurs or gallops. Abdomen: Soft and nondistended. Tenderness on the RLQ. RLQ drain in place draining sanguineous secretions. Bowel sounds positive in all 4 quadrants. Genitourinary: Deferred. Extremities: No cyanosis, no clubbing, no edema. Peripheral pulses palpable. Neurologic: Cranial nerves II through XII grossly intact. The patient is awake, alert, and oriented. Skin: Normal skin turgor. No skin rashes. Labs & Vitals per chart ASSESSMENT & PLAN 68-year-old female with comorbidities including hypertension, hypothyroidism, and depression who came to the emergency room with chief complaint of abdominal pain. The patient visited her primary care physician for the same complaint and she had a CT scan done that showed possible perforated appendicitis. Therefore, she was referred to the emergency room. The CT scan that was done at [facility] showed right pelvic abscess likely from perforated append icitis or right-sided diverticulitis. Patient also complained of febrile illness at home. The patient was admitted to inpatient setting. 1. Right pelvic abscess. -Status post evaluation by general surgery who recommended IR guided drainage. -Continue antimicrobials including coverage for anaerobes. -Regular diet. -Continue pain control. -Continue IV fluids. 2. Essential hypertension. -Continue the patient on PRN antihypertensives. 3. Hypothyroidism. -Continue Synthroid. 4. GERD. -Continue PPI. 5. Depression. -Continue antidepressants. 6. Fluids, electrolytes, and nutrition. -Regular diet. 7. DVT prophylaxis. -Bilateral SCDs. 8. Plan. -Continue antimicrobials including coverage for anaerobes. -Awaiting clinical improvement before discharging the patient home. The patient was seen in collaboration with . Result Diagram: 12/06/18 0647 12/06/18 0647 Results 24hrs Laboratory Tests Test 12/06/18 06:47 White Blood Count 14.3 #H Red Blood Count 3.27 L Hemoglobin 10.4 L Hematocrit 30.3 L Mean Corpuscular Volume 92.7 Mean Corpuscular Hemoglobin 31.8 Mean Corpuscular Hemoglobin Concent 34.3 Red Cell Distribution Width 11.5 Platelet Count 319 Mean Platelet Volume 9.9 Immature Granulocytes % 0.700 H Neutrophils % 82.4 H Lymphocytes % 9.3 L Monocytes % 6.8 Eosinophils % 0.2 Basophils % 0.6 Nucleated Red Blood Cells % 0.0 Immature Granulocytes # 0.100 H Neutrophils # 11.8 H Lymphocytes # 1.3 Monocytes # 1.0 H Eosinophils # 0.0 Basophils # 0.1 Nucleated Red Blood Cells # 0.0 Erythrocyte Sedimentation Rate 80.0 H Sodium Level 141 Potassium Level 3.5 Chloride Level 107 Carbon Dioxide Level 26 Anion Gap 8 Blood Urea Nitrogen 11 Creatinine 0.55 Est Glomerular Filtrat Rate mL/min > 60 Glucose Level 137 # Calcium Level 8.6 Phosphorus Level 2.7 Magnesium Level 2.2 C-Reactive Protein 11.5 H Exam/Review of Systems Exam Vitals Vital Signs Date Temp Pulse Resp B/P (MAP) Pulse Ox O2 O2 Flow FiO2 Time Delivery Rate 12/06/18 98.6 78 18 98/53 (68) 96 13:40 12/05/18 Room Air 13:45 12/05/18 2.0 08:48 12/05/18 21 06:18 Intake and Output 12/05/18 12/05/18 12/06/18 1515:00 23:00 07:00 IntakeIntake Total 920 ml 500 ml 1240 ml OutputOutput Total 0 ml 10 ml BalanceBalance 920 ml 500 ml 1230 ml Results Results 24hrs Laboratory Tests Test 12/06/18 06:47 White Blood Count 14.3 #H Red Blood Count 3.27 L Hemoglobin 10.4 L Hematocrit 30.3 L Mean Corpuscular Volume 92.7 Mean Corpuscular Hemoglobin 31.8 Mean Corpuscular Hemoglobin Concent 34.3 Red Cell Distribution Width 11.5 Platelet Count 319 Mean Platelet Volume 9.9 Immature Granulocytes % 0.700 H Neutrophils % 82.4 H Lymphocytes % 9.3 L Monocytes % 6.8 Eosinophils % 0.2 Basophils % 0.6 Nucleated Red Blood Cells % 0.0 Immature Granulocytes # 0.100 H Neutrophils # 11.8 H Lymphocytes # 1.3 Monocytes # 1.0 H Eosinophils # 0.0 Basophils # 0.1 Nucleated Red Blood Cells # 0.0 Erythrocyte Sedimentation Rate 80.0 H Sodium Level 141 Potassium Level 3.5 Chloride Level 107 Carbon Dioxide Level 26 Anion Gap 8 Blood Urea Nitrogen 11 Creatinine 0.55 Est Glomerular Filtrat Rate mL/min > 60 Glucose Level 137 # Calcium Level 8.6 Phosphorus Level 2.7 Magnesium Level 2.2 C-Reactive Protein 11.5 H Medications Medication Current Medications Sodium Chloride 1,000 ml @ 80 mls/hr [id number] IV Last administered on 12/06/18at 06:15; Admin Dose 80 MLS/HR; Start 12/04/18 at 21:02 IV Flush (NS 3 ml) 3 ml PER PROTOCOL IV ; Start 12/04/18 at 21:30 Ondansetron HCl (Zofran Inj) 4 mg Q6H PRN IV NAUSEA/VOMITING Last administered on 12/06/18at 02:23; Admin Dose 4 MG; Start 12/04/18 at 21:30 Acetaminophen (Tylenol Tab) 650 mg Q6H PRN PO .PAIN 1-3 OR TEMP Last ad ministered on 12/06/18at 14:03; Admin Dose 650 MG; Start 12/04/18 at 21:30 Docusate Sodium (Colace) 100 mg Q12H PRN PO .CONSTIPATION; Start 12/04/18 at 21:30 Bisacodyl (Dulcolax) 5 mg DAILY PRN PO .CONSTIPATION; Start 12/04/18 at 21:30 Morphine Sulfate (morphine) 4 mg Q4H PRN IV .SEVERE PAIN 7-10 Last administered on 12/05/18at 20:34; Admin Dose 4 MG; Start 12/04/18 at 21:30 Miscellaneous Information Patients own medicat... BID@10,16 XX ; Start 12/05/18 at 10:00 Diphenhydramine HCl (Benadryl) 50 mg Q6H PRN IV ALLERGIC REACTION; Start 12/05/18 at 11:00 Ciprofloxacin/ Dextrose 200 ml @ 200 mls/hr Q12 IVPB Last administered on 12/06/18 09:12; Admin Dose 200 MLS/HR; Start 12/05/18 at 09:00 Metronidazole 100 ml @ 100 mls/hr Q6 IVPB Last administered on 12/06/18 13:22; Admin Dose 100 MLS/HR; Start 12/05/18 at 08:00 Levothyroxine Sodium (Synthroid) 75 mcg BEFORE BREAKFAST PO Last administered on 12/06/18 06:31; Admin Dose 75 MCG; Start 12/06/18 at 07:00 Pantoprazole (Protonix Tab) 40 mg AC BREAKFAST PO Last administered on 12/06/18 06:31; Admin Dose 40 MG; Start 12/06/18 at 07:00 Ranitidine HCl (Zantac) 300 mg HS PO Last administered on 12/05/18 20:32; Admin Dose 300 MG; Start 12/05/18 at 21:00 Hydralazine HCl (Apresoline) 10 mg Q6H PRN IV SBP>160; Start 12/05/18 at 12:00 Hydromorphone HCl (Dilaudid) 1 mg Q4H PRN IV SEVERE PAIN LEVEL 7-10 Last administered on 12/05/18 23:07; Admin Dose 1 MG; Start 12/05/18 at 23:00 Lamotrigine (Lamictal) 200 mg BID PO Last administered on 12/06/18 09:12; Admin Dose 200 MG; Start 12/05/18 at 23:30 Venlafaxine HCl (Effexor Xr) 150 mg BID PO Last administered on 12/06/18 12:37; Admin Dose 150 MG; Start 12/05/18 at 23:30 STEVAN ZHANG NP December 06, 2018 14:40
[2018-12-06] MEDS: morphine 4 MG/ML VIAL IV PRN (18:35)
[2018-12-06] MEDS: RANITIDINE 150 MG TAB PO SCH (20:53)
[2018-12-06 20:54] VITALS: BP 123/58; PULSE 63; RESP 16
[2018-12-07] MEDS: SOD CHLORIDE 0.9% 1,000 ML IV SCH (00:16)
[2018-12-07] MEDS: metroNIDAZOLE 500 MG/NS (PMX) 100 ML IVPB SCH ×4 (00:16→17:25)
[2018-12-07 02:11] VITALS: BP 104/52; PULSE 82; RESP 16
[2018-12-07] MEDS: morphine 4 MG/ML VIAL IV PRN ×2 (04:10→19:47)
[2018-12-07] MEDS: ACETAMINOPHEN 325 MG TAB PO PRN (05:04)
[2018-12-07] MEDS: LEVOTHYROXINE 75 MCG TAB PO SCH (06:17)
[2018-12-07] MEDS: PANTOPRAZOLE (EC) 40 MG TAB PO SCH (06:17)
[2018-12-07 07:37] VITALS: BP 110/58; PULSE 79; RESP 18
[2018-12-07] MEDS ORDERED: HYDROCODONE/APAP (5/325) TAB PO PRN (08:30)
[2018-12-07] MEDS: LAMOTRIGINE 100 MG TAB PO SCH ×2 (09:06→21:00)
[2018-12-07] MEDS: VENLAFAXINE (XR) 75 MG CAP PO SCH ×2 (09:07→21:00)
[2018-12-07] MEDS: CIPROFLOXACIN 400MG/D5W 200 ML IVPB SCH ×2 (10:36→20:52)
--- NOTE | 2018-12-07 12:58 | PN ---
Date/Time of Note Date/Time of Note DATE: 12/07/18 TIME: 12:57 Assessment/Plan Lines/Catheters IV Catheter Type (from [facility]): Mid Line Assessment/Plan Chief Complaint/Hosp Course 68-year-old female with a periappendiceal abscess was drained under CT guidance. Doing overall better. Assessment/Plan Plan is to repeat CT scan Sunday for possible removal of the drain. Continue antibiotics. Subjective 24 Hr Interval Summary Patient is day 2 after drainage of the periappendiceal abscess. Patient is doing well, afebrile, still complains in the right lower quadrant pain. Drain drains minimal amount of serosanguineous, nonpurulent material. Tolerates regular diet. Feeding: advancing diet, baseline diet Pain Control: mild Exam/Review of Systems Vital Signs Vitals Vital Signs Date Temp Pulse Resp B/P (MAP) Pulse Ox O2 O2 Flow FiO2 Time Delivery Rate 12/07/18 98.0 79 18 110/58 95 07:37 (75) 12/06/18 2.0 17:58 12/05/18 Room Air 13:45 12/05/18 21 06:18 Intake and Output 12/06/18 12/06/18 12/07/18 1515:00 23:00 07:00 IntakeIntake Total 800 ml 1340 ml 540 ml BalanceBalance 800 ml 1340 ml 540 ml Results Result Diagram: 12/07/18 0639 12/07/18 0639 DINORA DAHL MD Dec 07, 2018 12:58
[2018-12-07 14:00] VITALS: BP 120/51; PULSE 69; RESP 18
--- NOTE | 2018-12-07 16:24 | PN ---
Date/Time of Note Date/Time of Note DATE: 12/07/18 TIME: 16:23 Assessment/Plan VTE Prophylaxis Risk score (from Nsg)>0 risk: 2 SCD applied (from Ns): No SCD contraindicated: other Pharmacological prophylaxis: NA/contraindicated Pharm contraindication: low risk/ambulating Lines/Catheters IV Catheter Type (from Nrsg): Mid Line Assessment/Plan Hospital Course SUBJECTIVE: Continues to complain of abdominal pain. OBJECTIVE: Physical Exam General: Adequately build 68 year-old male lying in bed in no apparent distress. HEENT: Normocephalic, atraumatic. Eyes: Anicteric sclerae, conjunctivae clear. ENT: Nasal septum midline, oral mucosa moist. Neck supple, no JVD noticed. Respiratory: Bilaterally clear breath sounds. No use of accessory muscles of respiration. No adventitious breath sounds. Cardiovascular: S1, S2 heard. No murmurs or gallops. Abdomen: Soft and nondistended. Tenderness on the RLQ. RLQ drain in place draining sanguineous secretions. Bowel sounds positive in all 4 quadrants. Genitourinary: Deferred. Extremities: No cyanosis, no clubbing, no edema. Peripheral pulses palpable. Neurologic: Cranial nerves II through XII grossly intact. The patient is awake, alert, and oriented. Skin: Normal skin turgor. No skin rashes. Labs & Vitals per chart ASSESSMENT & PLAN 68-year-old female with comorbidities including hypertension, hypothyroidism, and depression who came to the emergency room with chief complaint of abdominal pain. The patient visited her primary care physician for the same complaint and she had a CT scan done that showed possible perforated appendicitis. Therefore, she was referred to the emergency room. The CT scan that was done at [facility] showed right pelvic abscess likely from perforated appendicitis or right-sided diverticulitis. Patient also complained of febrile illness at home. The patient was admitted to inpatient setting. 1. Right pelvic abscess. -Status post evaluation by general surgery who recommended IR guided drainage. -Continue antimicrobials including coverage for anaerobes. -Regular diet. -Continue pain control. 2. Essential hypertension. -Fairly well controlled off antihypertensives. -Continue the patient on PRN antihypertensives. 3. Hypothyroidism. -Continue Synthroid. 4. GERD. -Continue PPI. 5. Depression. -Continue antidepressants. 6. Fluids, electrolytes, and nutrition. -Regular diet. 7. DVT prophylaxis. -Bilateral SCDs. 8. Plan. -Continue antimicrobials including coverage for anaerobes. -Awaiting clinical improvement before discharging the patient home. The patient was seen in collaboration with . Result Diagram: 12/07/18 0639 12/07/18 0639 Results 24hrs Laboratory Tests Test 12/07/18 06:39 White Blood Count 9.9 # Red Blood Count 3.09 L Hemoglobin 9.7 L Hematocrit 28.3 L Mean Corpuscular Volume 91.6 Mean Corpuscular Hemoglobin 31.4 Mean Corpuscular Hemoglobin Concent 34.3 Red Cell Distribution Width 11.9 Platelet Count 297 Mean Platelet Volume 10.3 Immature Granulocytes % 0.900 H Neutrophils % 66.1 Lymphocytes % 19.9 Monocytes % 8.6 Eosinophils % 4.0 Basophils % 0.5 Nucleated Red Blood Cells % 0.0 Immature Granulocytes # 0.090 H Neutrophils # 6.6 Lymphocytes # 2.0 Monocytes # 0.9 Eosinophils # 0.4 Basophils # 0.1 Nucleated Red Blood Cells # 0.0 Sodium Level 139 Potassium Level 4.2 Chloride Level 108 Carbon Dioxide Level 26 Anion Gap 5 Blood Urea Nitrogen 14 Creatinine 0.63 Est Glomerular Filtrat Rate mL/min > 60 Glucose Level 86 # Calcium Level 8.1 L Phosphorus Level 3.1 Magnesium Level 2.0 Exam/Review of Systems Exam Vitals Vital Signs Date Temp Pulse Resp B/P (MAP) Pulse Ox O2 O2 Flow FiO2 Time Delivery Rate 12/07/18 98.0 69 18 120/51 97 14:00 (74) 12/06/18 2.0 17:58 12/05/18 Room Air 13:45 12/05/18 21 06:18 Intake and Output 12/06/18 12/06/18 12/07/18 1515:00 23:00 07:00 IntakeIntake Total 800 ml 1340 ml 540 ml BalanceBalance 800 ml 1340 ml 540 ml Results Results 24hrs Laboratory Tests Test 12/07/18 06:39 White Blood Count 9.9 # Red Blood Count 3.09 L Hemoglobin 9.7 L Hematocrit 28.3 L Mean Corpuscular Volume 91.6 Mean Corpuscular Hemoglobin 31.4 Mean Corpuscular Hemoglobin Concent 34.3 Red Cell Distribution Width 11.9 Platelet Count 297 Mean Platelet Volume 10.3 Immature Granulocytes % 0.900 H Neutrophils % 66.1 Lymphocytes % 19.9 Monocytes % 8.6 Eosinophils % 4.0 Basophils % 0.5 Nucleated Red Blood Cells % 0.0 Immature Granulocytes # 0.090 H Neutrophils # 6.6 Lymphocytes # 2.0 Monocytes # 0.9 Eosinophils # 0.4 Basophils # 0.1 Nucleated Red Blood Cells # 0.0 Sodium Level 139 Potassium Level 4.2 Chloride Level 108 Carbon Dioxide Level 26 Anion Gap 5 Blood Urea Nitrogen 14 Creatinine 0.63 Est Glomerular Filtrat Rate mL/min > 60 Glucose Level 86 # Calcium Level 8.1 L Phosphorus Level 3.1 Magnesium Level 2.0 Medications Medication Current Medications Sodium Chloride 1,000 ml @ 80 mls/hr [id number] IV Last administered on 12/07/18 00:16; Admin Dose 80 MLS/HR; Start 12/04/18 at 21:02 IV Flush (NS 3 ml) 3 ml PER PROTOCOL IV ; Start 12/04/18 at 21:30 Ondansetron HCl (Zofran Inj) 4 mg Q6H PRN IV NAUSEA/VOMITING Last administered on 12/06/18 22:30; Admin Dose 4 MG; Start 12/04/18 at 21:30 Acetaminophen (Tylenol Tab) 650 mg Q6H PRN PO .PAIN 1-3 OR TEMP Last administered on 12/07/18 05:04; Admin Dose 650 MG; Start 12/04/18 at 21:30 Docusate Sodium (Colace) 100 mg Q12H PRN PO .CONSTIPATION Last administered on 12/06/18 21:02; Admin Dose 100 MG; Start 12/04/18 at 21:30 Bisacodyl (Dulcolax) 5 mg DAILY PRN PO .CONSTIPATION Last administered on 12/07/18 12:45; Admin Dose 5 MG; Start 12/04/18 at 21:30 Morphine Sulfate (morphine) 4 mg Q4H PRN IV .SEVERE PAIN 7-10 Last administered on 12/07/18 04:10; Admin Dose 4 MG; Start 12/04/18 at 21:30 Miscellaneous Information Patients own medicat... BID@10,16 XX ; Start 12/05/18 at 10:00 Diphenhydramine HCl (Benadryl) 50 mg Q6H PRN IV ALLERGIC REACTION; Start 12/05/18 at 11:00 Ciprofloxacin/ Dextrose 200 ml @ 200 mls/hr Q12 IVPB Last administered on 12/07/18 10:36; Admin Dose 200 MLS/HR; Start 12/05/18 at 09:00 Metronidazole 100 ml @ 100 mls/hr Q6 IVPB Last administered on 12/07/18 12:38; Admin Dose 100 MLS/HR; Start 12/05/18 at 08:00 Levothyroxine Sodium (Synthroid) 75 mcg BEFORE BREAKFAST PO Last administered on 12/07/18 06:17; Admin Dose 75 MCG; Start 12/06/18 at 07:00 Pantoprazole (Protonix Tab) 40 mg AC BREAKFAST PO Last administered on 12/07/18 06:17; Admin Dose 40 MG; Start 12/06/18 at 07:00 Ranitidine HCl (Zantac) 300 mg HS PO Last administered on 12/06/18 20:53; Admin Dose 300 MG; Start 12/05/18 at 21:00 Hydralazine HCl (Apresoline) 10 mg Q6H PRN IV SBP>160; Start 12/05/18 at 12:00 Hydromorphone HCl (Dilaudid) 1 mg Q4H PRN IV SEVERE PAIN LEVEL 7-10 Last administered on 12/05/18 23:07; Admin Dose 1 MG; Start 12/05/18 at 23:00 Lamotrigine (Lamictal) 200 mg BID PO Last administered on 12/07/18 09:06; Admin Dose 200 MG; Start 12/05/18 at 23:30 Venlafaxine HCl (Effexor Xr) 150 mg BID PO Last administered on 12/07/18 09:07; Admin Dose 150 MG; Start 12/05/18 at 23:30 Acetaminophen/ Hydrocodone Bitart ([place] (5/325)) 1 tab Q4H PRN PO MODERATE PAIN LEVEL 4-6 Last administered on 12/07/18 11:23; Admin Dose 1 TAB; Start 12/07/18 at 08:30 STEVAN ZHANG NP Dec 07, 2018 16:24
[2018-12-07] MEDS ORDERED: BISACODYL (EC) 5 MG TAB PO PRN (17:00)
[2018-12-07 20:00] VITALS: BP 129/69; PULSE 74; RESP 18
[2018-12-07] MEDS: RANITIDINE 150 MG TAB PO SCH (20:52)
[2018-12-07] MEDS: POLYETHYLENE GLYCOL 17 GM PACKET PO SCH (20:52)
[2018-12-08] MEDS: metroNIDAZOLE 500 MG/NS (PMX) 100 ML IVPB SCH ×5 (00:09→23:59)
[2018-12-08] MEDS: morphine 4 MG/ML VIAL IV PRN ×2 (00:34→21:09)
[2018-12-08 01:55] VITALS: BP 132/71; PULSE 69; RESP 19
[2018-12-08] MEDS: ACETAMINOPHEN 325 MG TAB PO PRN ×3 (03:34→20:39)
[2018-12-08] MEDS: LEVOTHYROXINE 75 MCG TAB PO SCH (06:21)
[2018-12-08] MEDS: PANTOPRAZOLE (EC) 40 MG TAB PO SCH (06:21)
[2018-12-08 08:19] VITALS: BP 136/63; PULSE 83; RESP 17
[2018-12-08] MEDS: CIPROFLOXACIN 400MG/D5W 200 ML IVPB SCH ×2 (09:15→20:37)
[2018-12-08] MEDS: VENLAFAXINE (XR) 75 MG CAP PO SCH ×3 (09:15→20:48)
[2018-12-08] MEDS: LAMOTRIGINE 100 MG TAB PO SCH ×3 (09:15→20:48)
[2018-12-08] MEDS: POLYETHYLENE GLYCOL 17 GM PACKET PO SCH ×2 (09:15→20:38)
--- NOTE | 2018-12-08 12:21 | PN ---
Date/Time of Note Date/Time of Note DATE: 12/08/18 TIME: 12:20 Assessment/Plan Lines/Catheters IV Catheter Type (from [facility] Mid Line Assessment/Plan Chief Complaint/Hosp Course 68-year-old female with a periappendiceal abscess was drained under CT guidance. Doing overall better. Assessment/Plan We will repeat CT scan tomorrow and if the cavity collapsed we will remove the catheter Subjective 24 Hr Interval Summary Patient is stable afebrile, drain drains minimal amount of serosanguineous fluid. Patient tolerates regular diet exam unremarkable. Constitutional: no complaints, improved, ambulates, BM, flatus, urine output Feeding: advancing diet Pain Control: well controlled Exam/Review of Systems Vital Signs Vitals Vital Signs Date Temp Pulse Resp B/P (MAP) Pulse Ox O2 O2 Flow FiO2 Time Delivery Rate 12/08/18 97.5 83 17 136/63 97 08:19 (87) 12/06/18 2.0 17:58 12/05/18 Room Air 13:45 12/05/18 21 06:18 Intake and Output 12/07/18 12/07/18 12/08/18 1515:00 23:00 07:00 IntakeIntake Total 900 ml 1180 ml 500 ml OutputOutput Total 10 ml BalanceBalance 900 ml 1180 ml 490 ml Exam Constitutional: alert, oriented, well developed Psych: no complaints, nl mood/affect Head: normocephalic, atraumatic Eyes: nl conjunctiva, EOMI, nl lids, nl sclera ENMT: nl external ears & nose, nl lips & teeth, nl nasal mucosa & septum, mucosa pink and moist Neck: supple, non-tender Respiratory: clear to auscultation, normal air movement Cardiovascular: regular rate and rhythm, nl pulses Gastrointestinal: soft, nl liver, spleen, non-tender Musculoskeletal: nl extremities to inspection, nl gait and stance Extremities: normal pulses Neurological: [employer] II-XII intact, nl mental status, nl speech, nl strength Skin: nl turgor, rash or lesions Lymph: nl lymph nodes Results Result Diagram: 12/08/18 0550 12/08/18 0550 DINORA DAHL MD Dec 08, 2018 12:21
--- NOTE | 2018-12-08 12:50 | PN ---
Date/Time of Note Date/Time of Note DATE: 12/08/18 TIME: 12:50 Assessment/Plan VTE Prophylaxis Risk score (from Nsg)>0 risk: 3 SCD applied (from Nsg): Yes Pharmacological prophylaxis: NA/contraindicated Pharm contraindication: low risk/ambulating Lines/Catheters IV Catheter Type (from Nrsg): Mid Line Assessment/Plan Hospital Course SUBJECTIVE: Continues to complain of abdominal pain. OBJECTIVE: Physical Exam General: Adequately build 68 year-old male lying in bed in no apparent distress. HEENT: Normocephalic, atraumatic. Eyes: Anicteric sclerae, conjunctivae clear. ENT: Nasal septum midline, oral mucosa moist. Neck supple, no JVD noticed. Respiratory: Bilaterally clear breath sounds. No use of accessory muscles of respiration. No adventitious breath sounds. Cardiovascular: S1, S2 heard. No murmurs or gallops. Abdomen: Soft and nondistended. Tenderness on the RLQ. RLQ drain in place draining sanguineous secretions. Bowel sounds positive in all 4 quadrants. Genitourinary: Deferred. Extremities: No cyanosis, no clubbing, no edema. Peripheral pulses palpable. Neurologic: Cranial nerves II through XII grossly intact. The patient is awake, alert, and oriented. Skin: Normal skin turgor. No skin rashes. Labs & Vitals per chart ASSESSMENT & PLAN 68-year-old female with comorbidities including hypertension, hypothyroidism, and depression who came to the emergency room with chief complaint of abdominal pain. The patient visited her primary care physician for the same complaint and she had a CT scan done that showed possible perforated appendicitis. Therefore, she was referred to the emergency room. The CT scan that was done at [facility] showed right pelvic abscess likely from perforated appendicitis or right-sided diverticulitis. Patient also complained of febrile illness at home. The patient was admitted to inpatient setting. 1. Right pelvic abscess. -Status post evaluation by general surgery who recommended IR guided drainage. -Continue antimicrobials including coverage for anaerobes. -Fluid culture showing E. coli and Enterococcus species. -Regular diet. -Continue pain control. 2. Essential hypertension. -Fairly well controlled off antihypertensives. 3. Hypothyroidism. -Continue Synthroid. 4. GERD. -Continue PPI. 5. Depression. -Continue antidepressants. 6. Fluids, electrolytes, and nutrition. -Regular diet. 7. DVT prophylaxis. -Bilateral SCDs. 8. Plan. -Continue antimicrobials including coverage for anaerobes. -Awaiting clinical improvement before discharging the patient home. -Repeat CT abdomen ordered on . The patient was seen in collaboration with . Result Diagram: 12/08/18 0550 12/08/18 0550 Results 24hrs Laboratory Tests Test 12/08/18 05:50 White Blood Count 6.9 # Red Blood Count 3.24 L Hemoglobin 10.3 L Hematocrit 29.3 L Mean Corpuscular Volume 90.4 Mean Corpuscular Hemoglobin 31.8 Mean Corpuscular Hemoglobin Concent 35.2 Red Cell Distribution Width 11.7 Platelet Count 335 Mean Platelet Volume 10.0 Immature Granulocytes % 1.200 H Neutrophils % 57.5 Lymphocytes % 25.4 Monocytes % 10.0 Eosinophils % 4.9 Basophils % 1.0 Nucleated Red Blood Cells % 0.0 Immature Granulocytes # 0.080 H Neutrophils # 4.0 Lymphocytes # 1.8 Monocytes # 0.7 Eosinophils # 0.3 Basophils # 0.1 Nucleated Red Blood Cells # 0.0 Erythrocyte Sedimentation Rate 77 H Sodium Level 141 Potassium Level 3.8 Chloride Level 107 Carbon Dioxide Level 27 Anion Gap 7 Blood Urea Nitrogen 12 Creatinine 0.55 Est Glomerular Filtrat Rate mL/min > 60 Glucose Level 108 Calcium Level 8.4 Phosphorus Level 3.9 Magnesium Level 2.2 C-Reactive Protein 4.7 H Exam/Review of Systems Exam Vitals Vital Signs Date Temp Pulse Resp B/P (MAP) Pulse Ox O2 O2 Flow FiO2 Time Delivery Rate 12/08/18 97.5 83 17 136/63 97 08:19 (87) 12/06/18 2.0 17:58 12/05/18 Room Air 13:45 12/05/18 21 06:18 Intake and Output 12/07/18 12/07/18 12/08/18 1515:00 23:00 07:00 IntakeIntake Total 900 ml 1180 ml 500 ml OutputOutput Total 10 ml BalanceBalance 900 ml 1180 ml 490 ml Results Results 24hrs Laboratory Tests Test 12/08/18 05:50 White Blood Count 6.9 # Red Blood Count 3.24 L Hemoglobin 10.3 L Hematocrit 29.3 L Mean Corpuscular Volume 90.4 Mean Corpuscular Hemoglobin 31.8 Mean Corpuscular Hemoglobin Concent 35.2 Red Cell Distribution Width 11.7 Platelet Count 335 Mean Platelet Volume 10.0 Immature Granulocytes % 1.200 H Neutrophils % 57.5 Lymphocytes % 25.4 Monocytes % 10.0 Eosinophils % 4.9 Basophils % 1.0 Nucleated Red Blood Cells % 0.0 Immature Granulocytes # 0.080 H Neutrophils # 4.0 Lymphocytes # 1.8 Monocytes # 0.7 Eosinophils # 0.3 Basophils # 0.1 Nucleated Red Blood Cells # 0.0 Erythrocyte Sedimentation Rate 77 H Sodium Level 141 Potassium Level 3.8 Chloride Level 107 Carbon Dioxide Level 27 Anion Gap 7 Blood Urea Nitrogen 12 Creatinine 0.55 Est Glomerular Filtrat Rate mL/min > 60 Glucose Level 108 Calcium Level 8.4 Phosphorus Level 3.9 Magnesium Level 2.2 C-Reactive Protein 4.7 H Medications Medication Current Medications IV Flush (NS 3 ml) 3 ml PER PROTOCOL IV ; Start 12/04/18 at 21:30 Ondansetron HCl (Zofran Inj) 4 mg Q6H PRN IV NAUSEA/VOMITING Last administered on 12/06/18at 22:30; Admin Dose 4 MG; Start 12/04/18 at 21:30 Acetaminophen (Tylenol Tab) 650 mg Q6H PRN PO .PAIN 1-3 OR TEMP Last administered on 12/08/18 03:34; Admin Dose 650 MG; Start 12/04/18 at 21:30 Docusate Sodium (Colace) 100 mg Q12H PRN PO .CONSTIPATION Last administered on 12/06/18at 21:02; Admin Dose 100 MG; Start 12/04/18 at 21:30 Bisacodyl (Dulcolax) 5 mg DAILY PRN PO .CONSTIPATION Last administered on 12/07at 12:45; Admin Dose 5 MG; Start 12/04/18 at 21:30 Morphine Sulfate (morphine) 4 mg Q4H PRN IV .SEVERE PAIN 7-10 Last administered on 12/08/18 00:34; Admin Dose 4 MG; Start 12/04/18 at 21:30 Miscellaneous Information Patients own medicat... BID@10,16 XX ; Start 12/05/18 at 10:00 Diphenhydramine HCl (Benadryl) 50 mg Q6H PRN IV ALLERGIC REACTION; Start 12/05/18 at 11:00 Ciprofloxacin/ Dextrose 200 ml @ 200 mls/hr Q12 IVPB Last administered on 12/08/18 09:15; Admin Dose 200 MLS/HR; Start 12/05/18 at 09:00 Metronidazole 100 ml @ 100 mls/hr Q6 IVPB Last administered on 12/08/18 11:55; Admin Dose 100 MLS/HR; Start 12/05/18 at 08:00 Levothyroxine Sodium (Synthroid) 75 mcg BEFORE BREAKFAST PO Last administered on 12/08/18 06:21; Admin Dose 75 MCG; Start 12/06/18 at 07:00 Pantoprazole (Protonix Tab) 40 mg AC BREAKFAST PO Last administered on 12/08/18 06:21; Admin Dose 40 MG; Start 12/06/18 at 07:00 Ranitidine HCl (Zantac) 300 mg HS PO Last administered on 12/07/18 20:52; Admin Dose 300 MG; Start 12/05/18 at 21:00 Hydralazine HCl (Apresoline) 10 mg Q6H PRN IV SBP>160; Start 12/05/18 at 12:00 Hydromorphone HCl (Dilaudid) 1 mg Q4H PRN IV SEVERE PAIN LEVEL 7-10 Last administered on 12/05/18 23:07; Admin Dose 1 MG; Start 12/05/18 at 23:00 Lamotrigine (Lamictal) 200 mg BID PO Last administered on 12/08/18 09:15; Admin Dose 200 MG; Start 12/05/18 at 23:30 Venlafaxine HCl (Effexor Xr) 150 mg BID PO Last administered on 12/08/18 09:15; Admin Dose 150 MG; Start 12/05/18 at 23:30 Acetaminophen/ Hydrocodone Bitart ([place] (5/325)) 1 tab Q4H PRN PO MODERATE PAIN LEVEL 4-6 Last administered on 12/07/18 11:23; Admin Dose 1 TAB; Start 12/07/18 at 08:30 Polyethylene Glycol (Miralax) 17 gm BID PO Last administered on 12/08/18 09:15; Admin Dose 17 GM; Start 12/07/18 at 21:00 Bisacodyl (Dulcolax) 10 mg DAILY PRN PO CONSTIPATION; Start 12/07/18 at 17:00 Barium Sulfate (Readi-Cat 2 ( [place] )) 900 ml GIVE PRIOR TO CT ONCE PO ; Start 12/08/18 at 13:00; Stop 12/08/18 at 13:01 STEVAN ZHANG NP Dec 08, 2018 12:50
[2018-12-08] MEDS ORDERED: BARIUM SULF 2% 450 ML BTL (BERRY SMOOTHIE) PO ONE (13:00)
[2018-12-08] MEDS ORDERED: BISACODYL 10 MG SUPP PR ONE (13:30)
[2018-12-08 13:45] VITALS: BP 122/58; PULSE 72; RESP 17
[2018-12-08 19:56] VITALS: BP 137/67; PULSE 74; RESP 18
[2018-12-08] MEDS: RANITIDINE 150 MG TAB PO SCH (20:38)
[2018-12-08] MEDS: ONDANSETRON 4 MG INJ IV PRN (22:43)
[2018-12-09 01:58] VITALS: BP 138/65; PULSE 76; RESP 18
[2018-12-09] MEDS: ACETAMINOPHEN 325 MG TAB PO PRN ×2 (05:16→14:31)
[2018-12-09] MEDS: metroNIDAZOLE 500 MG/NS (PMX) 100 ML IVPB SCH ×2 (05:17→12:21)
[2018-12-09] MEDS: PANTOPRAZOLE (EC) 40 MG TAB PO SCH (06:34)
[2018-12-09] MEDS: LEVOTHYROXINE 75 MCG TAB PO SCH (06:34)
[2018-12-09 07:37] VITALS: BP 158/69; PULSE 77; RESP 18
[2018-12-09] MEDS: LAMOTRIGINE 100 MG TAB PO SCH ×2 (08:11→20:56)
[2018-12-09] MEDS: POLYETHYLENE GLYCOL 17 GM PACKET PO SCH ×2 (08:11→20:57)
[2018-12-09] MEDS: VENLAFAXINE (XR) 75 MG CAP PO SCH ×2 (08:12→20:57)
[2018-12-09] MEDS: CIPROFLOXACIN 400MG/D5W 200 ML IVPB SCH (09:07)
[2018-12-09] MEDS ORDERED: IOHEXOL 14.3 MG(I)/ML (ADULT) BTL PO ONE (09:30)
[2018-12-09 14:00] VITALS: BP 134/63; PULSE 77; RESP 18
--- NOTE | 2018-12-09 15:47 | PN ---
Date/Time of Note Date/Time of Note DATE: 12/09/18 TIME: 15:44 Assessment/Plan VTE Prophylaxis Risk score (from Ns)>0 risk: 3 SCD applied (from Ns): Yes Pharmacological prophylaxis: NA/contraindicated Pharm contraindication: low risk/ambulating Lines/Catheters IV C[facility]ter Type (from [facility]): Mid Line Assessment/Plan Hospital Course 68-year-old female with comorbidities including hypertension, hypothyroidism, and depression who came to the emergency room with chief complaint of abdominal pain. The patient visited her primary care physician for the same complaint and she had a CT scan done that showed possible perforated appendicitis. Therefore, she was referred to the emergency room. The CT scan that was done at [facility] showed right pelvic abscess likely from perforated appendicitis or right-sided diverticulitis. Patient also complained of febrile illness at home. The patient was admitted to inpatient setting. 1. Right pelvic abscess. -Status post evaluation by general surgery who recommended IR guided drainage -CT-guided drainage was done on 12/05/2018, repeat CT from today shows significantly decreased abscess size, patient continues to have over 10 cc of fluid since morning -Defer removal of drain to IR -Continue antimicrobials including coverage for anaerobes. -Fluid culture showing E. coli and Enterococcus species. -Regular diet. -Continue pain control -ID consultation obtained 2. Essential hypertension. -Fairly well controlled off antihypertensives. 3. Hypothyroidism. -Continue Synthroid. 4. GERD. -Continue PPI. 5. Depression. -Continue antidepressants. 6. Fluids, electrolytes, and nutrition. -Regular diet. DVT prophylaxis. -Bilateral SCDs. DC planning: -Continue antimicrobials including coverage for anaerobes. -Awaiting clinical improvement before discharging the patient home. -Obtain ID consultation Result Diagram: 12/09/1851912/09/18 05 Results 24hrs Laboratory Tests Test 12/09/18 05:20 White Blood Count 9.1 # Red Blood Count 3.46 L Hemoglobin 11.1 L Hematocrit 31.9 L Mean Corpuscular Volume 92.2 Mean Corpuscular Hemoglobin 32.1 Mean Corpuscular Hemoglobin Concent 34.8 Red Cell Distribution Width 11.8 Platelet Count 380 Mean Platelet Volume 9.8 Immature Granulocytes % 1.400 H Neutrophils % 63.7 Lymphocytes % 20.6 Monocytes % 8.8 Eosinophils % 4.5 Basophils % 1.0 Nucleated Red Blood Cells % 0.0 Immature Granulocytes # 0.130 H Neutrophils # 5.8 Lymphocytes # 1.9 Monocytes # 0.8 Eosinophils # 0.4 Basophils # 0.1 Nucleated Red Blood Cells # 0.0 Sodium Level 142 Potassium Level 4.2 Chloride Level 105 Carbon Dioxide Level 32 H Anion Gap 5 Blood Urea Nitrogen 13 Creatinine 0.62 Est Glomerular Filtrat Rate mL/min > 60 Glucose Level 98 Calcium Level 8.3 L Phosphorus Level 3.7 Magnesium Level 2.1 Subjective 24 Hr Interval Summary Constitutional: no complaints Exam/Review of Systems Exam Vitals Vital Signs Date Temp Pulse Resp B/P (MAP) Pulse Ox O2 O2 Flow FiO2 Time Delivery Rate 12/09/18 37.1 15:16 12/09/18 77 18 134/63 100 14:00 (86) 12/06/18 2.0 17:58 12/05/18 Room Air 13:45 Intake and Output 12/08/18 12/08/18 12/09/18 1515:00 23:00 07:00 IntakeIntake Total 400 ml 790 ml 300 ml OutputOutput Total 10 ml BalanceBalance 400 ml 780 ml 300 ml Constitutional: alert, oriented Respiratory: clear to auscultation Cardiovascular: regular rate and rhythm Gastrointestinal: soft; No distended Musculoskeletal: nl extremities to inspection Results Results 24hrs Laboratory Tests Test 12/09/18 05:20 White Blood Count 9.1 # Red Blood Count 3.46 L Hemoglobin 11.1 L Hematocrit 31.9 L Mean Corpuscular Volume 92.2 Mean Corpuscular Hemoglobin 32.1 Mean Corpuscular Hemoglobin Concent 34.8 Red Cell Distribution Width 11.8 Platelet Count 380 Mean Platelet Volume 9.8 Immature Granulocytes % 1.400 H Neutrophils % 63.7 Lymphocytes % 20.6 Monocytes % 8.8 Eosinophils % 4.5 Basophils % 1.0 Nucleated Red Blood Cells % 0.0 Immature Granulocytes # 0.130 H Neutrophils # 5.8 Lymphocytes # 1.9 Monocytes # 0.8 Eosinophils # 0.4 Basophils # 0.1 Nucleated Red Blood Cells # 0.0 Sodium Level 142 Potassium Level 4.2 Chloride Level 105 Carbon Dioxide Level 32 H Anion Gap 5 Blood Urea Nitrogen 13 Creatinine 0.62 Est Glomerular Filtrat Rate mL/min > 60 Glucose Level 98 Calcium Level 8.3 L Phosphorus Level 3.7 Magnesium Level 2.1 Medications Medication Current Medications IV Flush (NS 3 ml) 3 ml PER PROTOCOL IV ; Start 12/04/18 at 21:30 Ondansetron HCl (Zofran Inj) 4 mg Q6H PRN IV NAUSEA/VOMITING Last administered on 12/08/18 22:43; Admin Dose 4 MG; Start 12/04/18 at 21:30 Acetaminophen (Tylenol Tab) 650 mg Q6H PRN PO .PAIN 1-3 OR TEMP Last administered on 12/09/18 14:31; Admin Dose 650 MG; Start 12/04/18 at 21:30 Docusate Sodium (Colace) 100 mg Q12H PRN PO .CONSTIPATION Last administered on 12/06/18 21:02; Admin Dose 100 MG; Start 12/04/18 at 21:30 Bisacodyl (Dulcolax) 5 mg DAILY PRN PO .CONSTIPATION Last administered on 12/07/18 12:45; Admin Dose 5 MG; Start 12/04/18 at 21:30 Morphine Sulfate (morphine) 4 mg Q4H PRN IV .SEVERE PAIN 7-10 Last administered on 12/08/18 21:09; Admin Dose 4 MG; Start 12/04/18 at 21:30 Miscellaneous Information Patients own medicat... BID@10,16 XX ; Start 12/05/18 at 10:00 Diphenhydramine HCl (Benadryl) 50 mg Q6H PRN IV ALLERGIC REACTION; Start 12/05/18 at 11:00 Ciprofloxacin/ Dextrose 200 ml @ 200 mls/hr Q12 IVPB Last administered on 09:07; Admin Dose 200 MLS/HR; Start 12/05/18 at 09:00 Metronidazole 100 ml @ 100 mls/hr Q6 IVPB Last administered on 12/09/18 12:21; Admin Dose 100 MLS/HR; Start 12/05/18 at 08:00 Levothyroxine Sodium (Synthroid) 75 mcg BEFORE BREAKFAST PO Last administered on 12/09/18 06:34; Admin Dose 75 MCG; Start 12/06/18 at 07:00 Pantoprazole (Protonix Tab) 40 mg AC BREAKFAST PO Last administered on 12/09/18 06:34; Admin Dose 40 MG; Start 12/06/18 at 07:00 Ranitidine HCl (Zantac) 300 mg HS PO Last administered on 12/08/18 20:38; Admin Dose 300 MG; Start 12/05/18 at 21:00 Hydralazine HCl (Apresoline) 10 mg Q6H PRN IV SBP>160; Start 12/05/18 at 12:00 Hydromorphone HCl (Dilaudid) 1 mg Q4H PRN IV SEVERE PAIN LEVEL 7-10 Last administered on 12/05/18at 23:07; Admin Dose 1 MG; Start 12/05/18 at 23:00 Lamotrigine (Lamictal) 200 mg BID PO Last administered on 12/09/18 08:11; Admin Dose 200 MG; Start 12/05/18 at 23:30 Venlafaxine HCl (Effexor Xr) 150 mg BID PO Last administered on 12/09/18 08:12; Admin Dose 150 MG; Start 12/05/18 at 23:30 Acetaminophen/ Hydrocodone Bitart ([place] (5/325)) 1 tab Q4H PRN PO MODERATE PAIN LEVEL 4-6 Last administered on 12/07/18 11:23; Admin Dose 1 TAB; Start 12/07/18 at 08:30 Polyethylene Glycol (Miralax) 17 gm BID PO Last administered on 12/09/18 08:11; Admin Dose 17 GM; Start 12/07/18 at 21:00 Bisacodyl (Dulcolax) 10 mg DAILY PRN PO CONSTIPATION; Start 12/07/18 at 17:00 BETITO PERRY Dec 09, 2018 15:47
[2018-12-09] MEDS: morphine 4 MG/ML VIAL IV PRN ×2 (15:55→23:40)
[2018-12-09] MEDS ORDERED: VANCOMYCIN IV PER PHARMACY XX SCH (17:00)
[2018-12-09] MEDS: CEFEPIME 1GM/50 ML (PMX) 50 ML IVPB SCH (17:40)
--- NOTE | 2018-12-09 17:54 | CONS ---
DATE OF ADMISSION: 12/04/2018 DATE OF CONSULTATION: 12/09/2018 TYPE OF CONSULTATION: Infectious Disease. REASON FOR CONSULTATION: Antibiotic management. HISTORY OF PRESENT ILLNESS: Eneida De Guzman is a 68-year-old female who comes in on 12/04/2018 with ab dominal pain for 4 days, sent in by her primary doctor for a burst appendix. The patient presents to the emergency room with a 4- to 5-day history of abdominal pain radiating to the right lower quadran t. CT showed possible perforated appendix. She has discomfort 5/10 in the right lower quadrant. Pa st problems include: 1. Status post tonsillectomy. 2. Depression. 3. ALLERGY TO SULFONAMIDES. 4. Hypothyroidism. 5. Hypertension. 6. GERD. PAST MEDICAL HISTORY: As outlined. FAMILY HISTORY: Noncontributory. SOCIAL HISTORY: She does not smoke, drink or abuse drugs. ALLERGIES: NONE TO PENICILLIN, SULFA OR FOODS. MEDICATIONS: Per chart. REVIEW OF SYSTEMS: As per HPI. PHYSICAL EXAMINATION: GENERAL: The patient is a well-developed, well-nourished female, awake, responsive, in no acute dist ress. VITAL SIGNS: Stable. She is afebrile. SKIN: Without generalized rash. HEENT: Within normal limits. NECK: Supple. LYMPH NODES: None palpable. CHEST: Decreased breath sounds at the bases. HEART: Without murmur or gallop. ABDOMEN: Soft, still quite tender with guarding at McBurney's point. She has a drain in place from surgery. EXTREMITIES: Without cyanosis, clubbing, or edema. RECTAL AND GENITAL: Exams deferred. NEUROLOGIC: No focal neurological abnormality. ANCILLARY LABORATORY DATA: On admission, white count was 8.4 with 70% neutrophils, H and H 11.3 and 32.7, platelet count 300,000. BUN and creatinine 14/0.66. She was started on Zosyn. CT scan showed possible perforated appendicitis. CT with contrast showing evidence of pelvic abscess likely second rolando to perforated appendicitis. HOSPITAL COURSE: Periappendiceal abscess, will benefit from percutaneous drainage by invasive radiol ogy. The patient had a CT-guided drainage on 12/05/2018. Presently, today, she shows significantly decreased abscess size, continues to have over 10 mL of fluid since the morning. Continue antimicrob ials. Fluid cultures grew out E. Coli and enterococcus species and alpha hemolytic strep. Escherich ia coli was sensitive to ampicillin, the alpha hemolytic strep was sensitive to cefotaxime and the al pha hemolytic strep was sensitive to clindamycin. IMPRESSION AND PLAN: The patient is currently on ciprofloxacin and metronidazole. The Cipro will no t cover the enterococcus. It covers the E. coli. Alpha hemolytic strep and E. coli are covered by c efotaxime, alpha hemolytic strep with clindamycin and certainly with vancomycin. I am going to riley e her regimen and put her on vancomycin and ceftriaxone. Dictated By: VISHNU SAPP MD, JD/NTS Conf#: [id number] DID#: [id number] CC: SAJAN GRADY MD;*[facility]*
[2018-12-09] MEDS ORDERED: VANCOMYCIN HCL 1.25 GM in SOD CHLORIDE 0.9% 250 ML IVPB ONE (18:00)
[2018-12-09 20:15] VITALS: BP 129/60; PULSE 71; RESP 18
[2018-12-09] MEDS: RANITIDINE 150 MG TAB PO SCH (20:56)
[2018-12-10 02:30] VITALS: BP 175/80; PULSE 83; RESP 18
[2018-12-10 03:55] VITALS: BP 142/66; PULSE 89
[2018-12-10] MEDS ORDERED: VANCOMYCIN 750 MG (PMX) 250 ML IVPB SCH (06:00)
[2018-12-10] MEDS: PANTOPRAZOLE (EC) 40 MG TAB PO SCH (06:06)
[2018-12-10] MEDS: LEVOTHYROXINE 75 MCG TAB PO SCH (06:07)
[2018-12-10] MEDS: ACETAMINOPHEN 325 MG TAB PO PRN ×2 (06:07→15:01)
[2018-12-10 07:22] VITALS: BP 137/62; PULSE 68; RESP 15
[2018-12-10] MEDS: VENLAFAXINE (XR) 75 MG CAP PO SCH (08:42)
[2018-12-10] MEDS: LAMOTRIGINE 100 MG TAB PO SCH (08:42)
[2018-12-10] MEDS: POLYETHYLENE GLYCOL 17 GM PACKET PO SCH (08:46)
[2018-12-10] MEDS: CEFEPIME 1GM/50 ML (PMX) 50 ML IVPB SCH (09:25)
[2018-12-10 14:29] VITALS: BP 138/65; PULSE 73; RESP 15
--- NOTE | 2018-12-10 14:48 | CONS ---
Assessment/Plan Assessment/Plan Hospital Course (Demo Recall) Patient is alert eating lunch denies pain no fevers overnight no labs in this morning Fluid culture grew E. coli alphahemolytic strep species and enterococcus species Antimicrobials: Vancomycin and cefepime Allergies sulfa, Zosyn Physical examination well-nourished well-developed elderly woman who is alert in no distress. Head atraumatic normocephalic sclera nonicteric neck is supple ch est rise symmetrical breath sounds clear heart S1-S2 abdomen soft bowel sounds present patient has right-sided accordion drain extremities without cyanosis Assessment: 1. Jenny-appendiceal abscess status post drainage Plan: Patient is stable, continue antibiotics, follow surgical recommendations Consultation Date/Type/Reason Admit Date/Time December 04, 2018 at 19:58 Initial Consult Date 12/04/18 Type of Consult id Date/Time of Note DATE: 12/10/18 TIME: 14:48 Exam/Review of Systems Exam Vitals Vital Signs Date Temp Pulse Resp B/P (MAP) Pulse Ox O2 O2 Flow FiO2 Time Delivery Rate 12/10/18 97.4 73 15 138/65 94 Room Air 14:29 (89) 12/06/18 2.0 17:58 Intake and Output 12/09/18 12/09/18 12/10/18 1515:00 23:00 07:00 IntakeIntake Total 740 ml 220 ml OutputOutput Total 10 ml BalanceBalance 730 ml 220 ml Results Result Diagram: 12/09/18 0520 12/09/18 0520 Medications Medication Current Medications IV Flush (NS 3 ml) 3 ml PER PROTOCOL IV ; Start 12/04/18 at 21:30 Ondansetron HCl (Zofran Inj) 4 mg Q6H PRN IV NAUSEA/VOMITING Last administered on 12/08/18at 22:43; Admin Dose 4 MG; Start 12/04/18 at 21:30 Acetaminophen (Tylenol Tab) 650 mg Q6H PRN PO .PAIN 1-3 OR TEMP Last administered on 12/10/18at 06:07; Admin Dose 650 MG; Start 12/04/18 at 21:30 Docusate Sodium (Colace) 100 mg Q12H PRN PO .CONSTIPATION Last administered on 12/06/18at 21:02; Admin Dose 100 MG; Start 12/04/18 at 21:30 Bisacodyl (Dulcolax) 5 mg DAILY PRN PO .CONSTIPATION Last administered on 12/07/18 12:45; Admin Dose 5 MG; Start 12/04/18 at 21:30 Morphine Sulfate (morphine) 4 mg Q4H PRN IV .SEVERE PAIN 7-10 Last administered on 12/09/18 23:40; Admin Dose 4 MG; Start 12/04/18 at 21:30 Miscellaneous Information Patients own medicat... BID@10,16 XX ; Start 12/05/18 at 10:00 Diphenhydramine HCl (Benadryl) 50 mg Q6H PRN IV ALLERGIC REACTION; Start 11/08 at 11:00 Levothyroxine Sodium (Synthroid) 75 mcg BEFORE BREAKFAST PO Last administered on 12/10/18 06:07; Admin Dose 75 MCG; Start 12/06/18 at 07:00 Pantoprazole (Protonix Tab) 40 mg AC BREAKFAST PO Last administered on 12/10/18 06:06; Admin Dose 40 MG; Start 12/06/18 at 07:00 Ranitidine HCl (Zantac) 300 mg HS PO Last administered on 12/09/18 20:56; Admin Dose 300 MG; Start 12/05/18 at 21:00 Hydralazine HCl (Apresoline) 10 mg Q6H PRN IV SBP>160; Start 12/05/18 at 12:00 Hydromorphone HCl (Dilaudid) 1 mg Q4H PRN IV SEVERE PAIN LEVEL 7-10 Last administered on 12/05/18 23:07; Admin Dose 1 MG; Start 12/05/18 at 23:00 Lamotrigine (Lamictal) 200 mg BID PO Last administered on 12/10/18 08:42; Admin Dose 200 MG; Start 12/05/18 at 23:30 Venlafaxine HCl (Effexor Xr) 150 mg BID PO Last administered on 12/10/18 08:42; Admin Dose 150 MG; Start 12/05/18 at 23:30 Acetaminophen/ Hydrocodone Bitart ([place] (5/325)) 1 tab Q4H PRN PO MODERATE PAIN LEVEL 4-6 Last administered on 12/07/18 11:23; Admin Dose 1 TAB; Start 12/07/18 at 08:30 Polyethylene Glycol (Miralax) 17 gm BID PO Last administered on 12/09/18at 08:11; Admin Dose 17 GM; Start 12/07/18 at 21:00 Bisacodyl (Dulcolax) 10 mg DAILY PRN PO CONSTIPATION; Start 12/07/18 at 17:00 Vancomycin HCl (Vanco Iv Per Pharmacy) VANCOMYCIN PER PHARMACY PER PROTOCOL XX ; Start 12/09/18 at 17:00 Cefepime HCl 50 ml @ 100 mls/hr Q12 IVPB Last administered on 12/10/18at 09:25; Admin Dose 100 MLS/HR; Start 12/09/18 at 17:30 Vancomycin/Sodium Chloride 250 ml @ 125 mls/hr Q12H IVPB Last administered on 12/10/18at 05:38; Admin Dose 125 MLS/HR; Start 12/10/18 at 06:00 Miscellaneous Information (*Rx Drug Level Order Reminder*) 1 0500 ONCE XX ; Start 12/11/18 at 05:00; Stop 12/11/18 at 05:01 BRIDGER HIRSCH NP Dec 10, 2018 14:48
[2018-12-10] MEDS ORDERED: CIPR500T4 PO (17:38)
--- NOTE | 2018-12-10 17:39 | PDOCDIS ---
Discharge Instructions CONDITION [id number] Patient Condition: [id number] Good HOME CARE INSTRUCTIONS: [id number] Diet Instructions: [id number] Regular ACTIVITY: [id number] Activity Restrictions: [id number] Slowly Increase Activity [id number] Bathing Restrictions: [id number] Tub Bath (x 1 week ) BETITO PERRY Dec 10, 2018 17:39
--- NOTE | 2018-12-10 17:54 | DS ---
Date/Time of Note Date/Time of Note DATE: 12/10/18 TIME: 17:51 Discharge Summary Admission/Discharge Info Admit Date/Time December 04, 2018 at 19:58 Discharge Date/Time December 10, 2018 Discharge Diagnosis 1. Right pelvic abscess. -Status post evaluation by general surgery who recommended IR guided drainage -CT-guided drainage was done on 12/05/2018, repeat CT shows significantly decreased abscess size, patient now with insignificant amount of output in drain, drain has been removed today -Status post broad-spectrum antibiotics -DC with Cipro -Fluid culture showing E. coli and Enterococcus species. -ID consultation appreciated 2. Essential hypertension. -Fairly well controlled off antihypertensives. 3. Hypothyroidism. -Continue Synthroid. 4. GERD. -Continue PPI. 5. Depression. -Continue antidepressants. Patient Condition: Good Hospital Course Patient is a 68-year-old female with comorbidities including hypertension, hypothyroidism, and depression who came to the emergency room with chief complaint of abdominal pain. The patient visited her primary care physician for the same complaint and she had a CT scan done that showed possible perforated appendicitis. Therefore, she was referred to the emergency room. The CT scan that was [facility] at [facility] showed right pelvic abscess likely from perforated appendicitis or right-sided diverticulitis. Patient also complained of febrile illness at home. The patient was seen by surgery recommended CT-guided drainage with IR, drain was placed on 12/05/2018. Patient was continued on broad-spectrum IV antibiotics. Repeat CT showed significant d ecreased exercise and output within the drain was insignificant and hence was removed. Patient was stable for DC with oral antibiotics, on the day of discharge patient vitals, labs and physical exam are stable. Home Meds Active Scripts Ciprofloxacin Hcl* (Ciprofloxacin Hcl*) 500 Mg Tablet, 500 MG PO BID for 3 Days, #6 TAB Prov:BETITO PERRY 12/10/18 Reported Medications Cariprazine HCl (Vraylar) 1.5 Mg Capsule, 1.5 MG PO DAILY, CAP 12/04/18 Montelukast Sodium* (Montelukast Sodium*) 10 Mg Tablet, 10 MG PO QHS, #30 TAB 12/04/18 Levothyroxine Sodium* (Levothyroxine Sodium*) 75 Mcg Tablet, 75 MCG PO BEFORE BREAKFAST, #30 TAB 12/04/18 Pantoprazole* (Pantoprazole*) 40 Mg Tablet.dr, 40 MG PO AC BREAKFAST, TAB 12/04/18 Lamotrigine* (Lamotrigine*) 200 Mg Tablet, 200 MG PO BID, TAB 12/04/18 Ranitidine Hcl* (Ranitidine Hcl*) 300 Mg Tablet, 300 MG PO HS, #30 TAB 12/04/18 Losartan Potassium* (Losartan Potassium*) 100 Mg Tablet, 100 MG PO DAILY, TAB 12/04/18 Venlafaxine Hcl* (Venlafaxine Hcl ER*) 150 Mg Tab.er.24, 150 MG PO BID, TAB.SA 12/04/18 Ergocalciferol (Vitamin D2) (VITAMIN D2) 50,000 Unit Capsule, 52253 UNIT PO Q SUN, CAP 12/04/18 Discontinued Reported Medications Topiramate* (Topiramate*) 25 Mg Tablet, 50 MG PO QPM 07/19/15 Lamotrigine* (Lamotrigine*) 25 Mg Tablet, 50 MG PO DAILY 07/19/15 Levothyroxine Sodium* (Levothyroxine Sodium*) 75 Mcg Tablet, 75 MCG PO AC BREAKFAST, TAB 05/07/14 Follow-up Plan Follow-up with PCP in 1 to 2 weeks Primary Care Provider [place] Alcantara Time spent on discharge: > 30 minutes BETITO PERRY Dec 10, 2018 17:54
== END 2018-12-10 18:25 | disposition home or self-care (01) | DRG 757 ==
LOC: E/R 17:14 → PP2 19:58 → 5EC 12-06 01:43
PROVIDERS: ADMIT Family Medicine; ATTEND Internal Medicine
PROC: 0J9C30Z Drainage of Pelvic Region Subcutaneous Tissue and Fascia with Drainage Device, Percutaneous Approach (ICD-10-PCS; principal; 2018-12-05)
DX: N73.9 Female pelvic inflammatory disease, unspecified (principal); K35.32 Acute appendicitis with perforation, localized peritonitis, and gangrene, without abscess; L02.818 Cutaneous abscess of other sites; B95.2 Enterococcus as the cause of diseases classified elsewhere; B96.20 Unspecified Escherichia coli [E. coli] as the cause of diseases classified elsewhere; K21.9 Gastro-esophageal reflux disease without esophagitis; E03.9 Hypothyroidism, unspecified; I10 Essential (primary) hypertension; F32.9 Major depressive disorder, single episode, unspecified
CPT/HCPCS: 36415; 71045; 74176; 74177; 77012; 80048; 80053; 80061; 83036; 83690; 83735; 84100; 84443; 85025; 85610; 85651; 85730; 86140; 87070; 94664; 96374; 96375; C1729; J0692; J0744; J1170; J1200; J2250; J2270; J2405; J2543; J2930; J3010; J3370; J7030; J7040; J7050; Q9967

== ENCOUNTER 2018-12-16 12:25 | Emergency (ER) | payer MEDICARE, OTHER ==
[~2018-12-16] VITALS: Ht 160 cm; Wt 60.0 kg
[~2018-12-16 12:25] MED LIST changes: +CARI1.5C PO; +CIPR500T4 PO; +ERGO500013 PO; +LAMO200T2 PO; -LAMO25TA8 PO; +LOSA100T15 PO; +MONT10TA24 PO; +PANT40TA4 PO; +RANI300T PO; -TOPI25TA10 PO; +VENL150T PO
[2018-12-16 12:39] VITALS: Ht 160 cm; Wt 60.0 kg
--- NOTE | 2018-12-16 14:34 | ERD ---
ER Documentation Chief Complaint Chief Complaint Black tarry stools x 3days with RLQ cramping HPI The patient is a 68-year-old female, presenting to the ER because of recurrent lower abdominal pain for 3 days, more on the right than the left, with black stool. She has been taking ibuprofen 8 mg twice a day for the pain. She denies fever, chills, neck pain, chest pain, dyspnea, dysuria, diarrhea, constipation. He was admitted and discharged about 6 days ago after had percutaneous drainage for ruptured appendicitis Past Medical History: Hypothyroidism, hypertension, depression, dyslipidemia, chronic neck pain Past surgical history: Cervical surgery, right knee arthroplasty ROS All systems reviewed and are negative except as per history of present illness. Medications Home Meds Reported Medications Cariprazine HCl (Vraylar) 1.5 Mg Capsule, 1.5 MG PO DAILY, CAP 12/04/18 Montelukast Sodium* (Montelukast Sodium*) 10 Mg Tablet, 10 MG PO QHS, #30 TAB 12/04/18 Levothyroxine Sodium* (Levothyroxine Sodium*) 75 Mcg Tablet, 75 MCG PO BEFORE BREAKFAST, #30 TAB 12/04/18 Pantoprazole* (Pantoprazole*) 40 Mg Tablet.dr, 40 MG PO AC BREAKFAST, TAB 12/04/18 Lamotrigine* (Lamotrigine*) 200 Mg Tablet, 200 MG PO BID, TAB 12/04/18 Ranitidine Hcl* (Ranitidine Hcl*) 300 Mg Tablet, 300 MG PO HS, #30 TAB 12/04/18 Losartan Potassium* (Losartan Potassium*) 100 Mg Tablet, 100 MG PO DAILY, TAB 12/04/18 Venlafaxine Hcl* (Venlafaxine Hcl ER*) 150 Mg Tab.er.24, 150 MG PO BID, TAB.SA 12/04/18 Ergocalciferol (Vitamin D2) (VITAMIN D2) 50,000 Unit Capsule, 60055 UNIT PO Q SUN, CAP 12/04/18 Discontinued Scripts Ciprofloxacin Hcl* (Ciprofloxacin Hcl*) 500 Mg Tablet, 500 MG PO BID for 3 Days, #6 TAB Prov:BETITO PERRY 12/10/18 Allergies Allergies: Coded Allergies: Sulfa (Sulfonamide Antibiotics) (Verified Allergy, Intermediate, RASH, 12/16/18) piperacillin (Verified Allergy, Unknown, 12/16/18) tazobactam (Verified Allergy, Unknown, 12/16/18) PMhx/Soc Anesthesia Reaction: No Hx Neurological Disorder: Yes (hx of neck sx due chronic pain) Hx Respiratory Disorders: No Hx Cardiac Disorders: Yes (HTN, HLD) Hx Psychiatric Problems: Yes (Depression) Hx Miscellaneous Medical Probl: No Hx Alcohol Use: Yes (Wine 2 wks ago) Hx Substance Use: No Hx Tobacco Use: Yes Physical Exam Vitals Vital Signs Date Temp Pulse Resp B/P (MAP) Pulse Ox O2 O2 Flow FiO2 Time Delivery Rate 12/16/18 72 18 122/56 98 Room Air 16:10 (78) 12/16/18 98.2 78 18 113/59 99 12:39 (77) Physical Exam Const: No acute distress. Head: Atraumatic. Eyes: Normal Conjunctiva. ENT: Normal External Ears, Nose and Mouth. Neck: Full range of motion. No meningismus. Resp: Clear to auscultation bilaterally. Cardio: Regular rate and rhythm. Abd: Soft, non distended, normal bowel sounds, bilateral lower abdominal tenderness, more tenderness at the right lower quadrant, no rigidity/rebound/CVA tenderness Skin: No petechiae or rashes. Back: No midline or flank tenderness. Ext: No cyanosis, or edema. Neur: Awake and alert. No focal deficit Psych: Normal Mood and Affect. Result Diagram: 12/16/18 1456 12/16/18 1456 Results 24 hrs Laboratory Tests Test 12/16/18 14:56 12/16/18 15:07 White Blood Count 7.4 10^3/ul Red Blood Count 4.25 10^6/ul Hemoglobin 13.4 g/dl Hematocrit 39.1 % Mean Corpuscular Volume 92.0 fl Mean Corpuscular Hemoglobin 31.5 pg Mean Corpuscular Hemoglobin Concent 34.3 g/dl Red Cell Distribution Width 12.3 % Platelet Count 413 10^3/UL Mean Platelet Volume 9.7 fl Immature Granulocytes % 0.800 % Neutrophils % 53.8 % Lymphocytes % 33.8 % Monocytes % 8.1 % Eosinophils % 2.0 % Basophils % 1.5 % Nucleated Red Blood Cells % 0.0 /100WBC Immature Granulocytes # 0.060 10^3/ul Neutrophils # 4.0 10^3/ul Lymphocytes # 2.5 10^3/ul Monocytes # 0.6 10^3/ul Eosinophils # 0.2 10^3/ul Basophils # 0.1 10^3/ul Nucleated Red Blood Cells # 0.0 10^3/ul Sodium Level 137 mmol/L Potassium Level 4.5 mmol/L Chloride Level 101 mmol/L Carbon Dioxide Level 28 mmol/L Anion Gap 8 Blood Urea Nitrogen 13 mg/dl Creatinine 0.71 mg/dl Est Glomerular Filtrat Rate mL/min > 60 mL/min Glucose Level 85 mg/dl Calcium Level 9.4 mg/dl Total Bilirubin 0.3 mg/dl Direct Bilirubin 0.00 mg/dl Indirect Bilirubin 0.3 mg/dl Aspartate Amino Transf (AST/SGOT) 67 IU/L Alanine Aminotransferase (ALT/SGPT) 77 IU/L Alkaline Phosphatase 126 IU/L Total Protein 7.5 g/dl Albumin 4.3 g/dl Globulin 3.20 g/dl Albumin/Globulin Ratio 1.34 Lipase 660 U/L Bedside Urine pH (LAB) 7.0 Bedside Urine Protein (LAB) Negative Bedside Urine Glucose (UA) Negative Bedside Urine Ketones (LAB) Negative Bedside Urine Blood Negative Bedside Urine Nitrite (LAB) Negative Bedside Urine Leukocyte Esterase (L Negative Current Medications Medications Dose Sig/Lori Start Time Status Last (Trade) Ordered Route PRN Stop Time Admin Dose Reason Admin 650 mg ONCE ONCE 12/16/18 DC 12/16/18 Acetaminophen PO 15:30 15:33 (Tylenol 12/16/18 15:31 Tab) IV Flush 10 ml STK-MED 12/16/18 DC (NS 10 ml) ONCE .ROUTE 15:33 12/16/18 15:34 Sodium 100 ml @ ud STK-MED 12/16/18 DC Chloride ONCE .ROUTE 15:33 12/16/18 15:34 Iohexol 150 ml STK-MED 12/16/18 DC (Omnipaque ONCE .ROUTE 15:33 300mg/ ml) 12/16/18 15:34 150 ml @ ONCE ONCE 12/16/18 Levofloxacin/ 100 mls/hr IVPB 17:00 Dextrose 12/16/18 18:29 100 ml @ ONCE ONCE 12/16/18 DC Metronidazole 100 mls/hr IVPB 17:00 12/16/18 17:59 IV Flush 3 ml PER 12/16/18 UNV (NS 3 ml) PROTOCOL IV 18:30 Oxycodone/ 1 tab Q6H PRN 12/16/18 UNV Acetaminophen PO .MOD PAIN 18:30 (Percocet 4-6 (5/ 325)) Procedures/[place] [address] Radiology Main Line: [phone] DIAGNOSTIC IMAGING REPORT Patient: DOC SIMS : [id number] Age: 68 Sex: F MR #: [id number] DOS: 12/16/18 1441 Ordering MD: ABIODUN NGUYỄN MD Location: E/R Room/Bed: PROCEDURE: CT Abdomen and Pelvis with contrast. CLINICAL INDICATION: Abdominal Pain. TECHNIQUE: CT scan of the abdomen and pelvis with contrast was performed on a multi-detector high-resolution CT scanner. Oral contrast was not administered. Coronal and sagittal reformatted images were obtained from the axial source images. DICOM images are available. IV contrast: 90 cc of Omnipaque 300 Radiation dose: CTDIvol (mGy) = 7.74 ; total DLP (mGy-cm) = 397.87 One or more of the following dose reduction techniques were used: - Automated exposure control. - Adjustment of the mA and/or kV according to patient size. - Use of iterative reconstruction technique. COMPARISON: CT 12/09/2018; CT 12/04/2018 FINDINGS: Lower thorax: Partial visualization of bilateral breast implants. Liver: Normal. Biliary: Normal gallbladder. No biliary dilatation. Pancreas: Normal. Spleen: Normal. Adrenal Glands: Normal. Kidneys/Ureters: Normal. Bladder: Normal. Reproductive organs: Calcified fundal uterine fibroid. Gastrointestinal Tract: Moderate to large amount of stool throughout the colon. There is fat stranding about the appendix with wall thickening, grossly similar compared to the 12/09/2018 exam. There has been interval removal of the drain seen and previously noted right lower quadrant abscess. No recurrent fluid collection/abscess visualized. Peritoneum/Retroperitoneum: No free fluid or free air. Lymph nodes: Normal. Vessels: Normal. Musculoskeletal: Degenerative changes of the spine. Grade 1 anterolisthesis at L4-L5. IMPRESSION: 1. Inflammatory changes about the appendix. This is overall similar compared to the 12/09/2018 exam, and may reflect either evolving or continued inflammatory changes of the appendix. 2. The right lower quadrant abscess is no longer identified with interval removal of a percutaneous drain. No fluid collection in this region to suggest recurrent/residual abscess. 3. Additional findings as detailed above. Findings were discussed with Abiodun Bhandari on 12/16/2018 at 4:27 PM. RPTAT: BBDD Volodymyr Damon Physician Date Time Electronically viewed and signed by Volodymyr Damon Physician on 12/16/2018 16:25 RP/ CC: ABIODUN NGUYỄN MD [id number] Consultation: I discussed the patient with the on-call general surgeon Dr. Finch at 4:45 pm who evaluated her on last visit. He was made aware of the lab, the treatment, the patient condition, he accepted at the consult and recommended admitting the patient for IV antibiotic MEDICAL MAKING DECISION: The patient is a 68-year-old female, presenting with acute appendicitis, treated with 1 L normal saline, Tylenol 650 mg p.o. for discomfort, Levaquin IV and Flagyl IV for acute appendicitis, she is allergic to Zosyn The differential diagnoses considered include but are not limited to cholelithiasis, cholecystitis, choledocholithiasis, cholangitis, pancreatitis, hepatitis, gastritis, peptic ulcer disease, gastric ulcer, recurrent vs recent vs ongoing appendicitis, cystitis, diverticulitis, partial small bowel obstruction. Departure Diagnosis: Primary Impression: Appendicitis Additional Impression: Abnormal LFTs Condition: Stable Comments I discussed the findings with the patient. I discussed the patient with Dr Brar at 4:55pm , who was made aware of the lab, the treatment, the patient condition. The patient is admitted to [facility] Disclaimer: Inadvertent spelling and grammatical errors are likely due to EHR/dictation software use and do not reflect on the overall quality of patient care. Also, please note that the electronic time recorded on this note does not necessarily reflect the actual time of the patient encounter. ABIODUN NGUYỄN MD Dec 16, 2018 14:34
[2018-12-16] MEDS ORDERED: ACETAMINOPHEN 325 MG TAB PO ONE (15:30)
[2018-12-16] MEDS ORDERED: SOD CHLORIDE 0.9% 100 ML ONE (15:33)
[2018-12-16] MEDS ORDERED: IOHEXOL 300MG/ML 150 ML BTL ONE (15:33)
[2018-12-16] MEDS ORDERED: metroNIDAZOLE 500 MG/NS (PMX) 100 ML IVPB ONE (17:00)
[2018-12-16] MEDS ORDERED: LEVOFLOXACIN 750MG/D5W (PMX) 150 ML IVPB ONE (17:00)
--- NOTE | 2018-12-16 18:08 | HP ---
Date/Time of Note Date/Time of Note DATE: 12/16/18 TIME: 18:02 Assessment/Plan VTE Prophylaxis SCD applied (from Nsg): Yes Pharmacological prophylaxis: heparin Assessment/Plan Hospital Course 68 yo female wiht h/o pelvic abscess s/p IR drainage and PO abx course who returns with abdominal discomfort. CT imaging shows kimmie-appendix fat stranding and heavy colonic stool burden - Her exam is benign and she has no SIRS to suggest active abdominal infection. However given recent history IV abx are reasonable to continue. Will give IV zosyn given she has just completed PO quinolone therapy - Also possible this is due to constipation. She does say her stools have been black and she does have a very strong family history of colon cancer (three brothers all of this). Will give laxatives/enema and she should have a colonoscopy sometime soon - Lipase is mildly elevated. No other evidence of pancreatitis. I will trend this and workup further if remain elevated - Transaminitis but no RUQ symptoms or biliary findings on imaging, trend LFTs Result Diagram: 12/16/18 1456 12/16/18 1456 Results 24hrs Laboratory Tests Test 12/16/18 14:56 12/16/18 15:07 White Blood Count 7.4 Red Blood Count 4.25 # Hemoglobin 13.4 # Hematocrit 39.1 # Mean Corpuscular Volume 92.0 Mean Corpuscular Hemoglobin 31.5 Mean Corpuscular Hemoglobin Concent 34.3 Red Cell Distribution Width 12.3 Platelet Count 413 Mean Platelet Volume 9.7 Immature Granulocytes % 0.800 H Neutrophils % 53.8 Lymphocytes % 33.8 Monocytes % 8.1 Eosinophils % 2.0 Basophils % 1.5 Nucleated Red Blood Cells % 0.0 Immature Granulocytes # 0.060 H Neutrophils # 4.0 Lymphocytes # 2.5 Monocytes # 0.6 Eosinophils # 0.2 Basophils # 0.1 Nucleated Red Blood Cells # 0.0 Sodium Level 137 Potassium Level 4.5 Chloride Level 101 Carbon Dioxide Level 28 Anion Gap 8 Blood Urea Nitrogen 13 Creatinine 0.71 Est Glomerular Filtrat Rate mL/min > 60 Glucose Level 85 Calcium Level 9.4 Total Bilirubin 0.3 Direct Bilirubin 0.00 Indirect Bilirubin 0.3 Aspartate Amino Transf (AST/SGOT) 67 H Alanine Aminotransferase (ALT/SGPT) 77 H Alkaline Phosphatase 126 H Total Protein 7.5 Albumin 4.3 Globulin 3.20 Albumin/Globulin Ratio 1.34 Lipase 660 H Bedside Urine pH (LAB) 7.0 Bedside Urine Protein (LAB) Negative Bedside Urine Glucose (UA) Negative Bedside Urine Ketones (LAB) Negative Bedside Urine Blood Negative Bedside Urine Nitrite (LAB) Negative Bedside Urine Leukocyte Esterase (L Negative HPI/ROS Admit Date/Time Admit Date/Time Hx of Present Illness 68 yo female with abdominal pain Patient was recently admitted here for appendix abscess treated with IR drain and abx. Discharged on PO cipro. Serial CT imaging showed resolution of the abscess. She returns today with continued abdominal discomfort throughout lower quadrants. No fevers or chills. Passing stool. Says stool has been black, no kranthi blood. CT showed large stool burden in colon. Receives colonosocpy every two years as very strong family history of colon cancer. ROS Constitutional: no complaints, improved Eyes: no complaints ENT: no complaints Respiratory: no complaints Cardiovascular: no complaints Gastrointestinal: no complaints Genitourinary: no complaints Musculoskeletal: no complaints Skin: no complaints Neurologic: no complaints Endocrine: no complaints Lymphatic: no complaints Psychological: no complaints, nl mood/affect Immunologic: no complaints PMH/Family/Social Past Medical History Medical History: no pertinent history Medications Current Medications Levofloxacin/ Dextrose 150 ml @ 100 mls/hr ONCE ONCE IVPB ; Start 12/16/18 at 17:00; Stop 12/16/18 at 18:29 Coded Allergies: Sulfa (Sulfonamide Antibiotics) (Verified Allergy, Intermediate, RASH, 12/16/18) piperacillin (Verified Allergy, Unknown, 12/16/18) tazobactam (Verified Allergy, Unknown, 12/16/18) Past Surgical History Past Surgical Hx: noncontributory Family History Significant Family History: no pertinent family hx Social History Smoking Status: Current every day smoker Exam/Review of Systems Vital Signs Vitals Vital Signs Date Temp Pulse Resp B/P (MAP) Pulse Ox O2 O2 Flow FiO2 Time Delivery Rate 12/16/18 72 18 122/56 98 Room Air 16:10 (78) 12/16/18 98.2 12:39 Exam Constitutional: alert, oriented, well developed Psych: no complaints, nl mood/affect Head: normocephalic, atraumatic Eyes: nl conjunctiva, EOMI, nl lids, nl sclera, PERRL ENMT: nl external ears & nose, nl lips & teeth, nl nasal mucosa & septum Neck: supple, non-tender Respiratory: clear to auscultation, normal air movement Cardiovascular: regular rate and rhythm, nl pulses Gastrointestinal: soft, nl liver, spleen, non-tender Musculoskeletal: nl extremities to inspection Extremities: normal pulses Neurological: DISTRIBUTION SYSTEMS SUPERINTENDENT II-XII intact, nl mental status, nl speech, nl strength Skin: nl turgor; No rash or lesions Lymph: nl lymph nodes KIARA HELTON MD Dec 16, 2018 18:08
--- NOTE | 2018-12-16 18:23 | PDOCDIS ---
Discharge Instructions DIAGNOSIS Discharge Diagnosis Abdominal pain CONDITION [id number] Patient Condition: [id number] Stable FOLLOW UP/APPOINTMENTS Follow-up Plan Complete antibiotics as prescribed Take laxatives daily Make an appointment [place] with a pediatric nurse to schedule a colonoscopy Return to the emergency room if you have any concerning symptoms KIARA HELTON MD Dec 16, 2018 18:23
[2018-12-16] MEDS ORDERED: NACL 0.9% 3 ML SYG IV SCH (18:30)
[2018-12-16] MEDS ORDERED: OXYCODONE/ACETAMINOPHEN (5/325) TAB PO PRN (18:30)
[2018-12-16 18:38] VITALS: BP 128/67; PULSE 89; RESP 20
--- NOTE | 2018-12-17 17:27 | DS ---
Date/Time of Note Date/Time of Note DATE: 12/17/18 TIME: 17:26 Discharge Summary Admission/Discharge Info Admit Date/Time Discharge Date/Time Discharge Diagnosis Abdominal pain Patient Condition: Stable Hx of Present Illness 68 yo female with abdominal pain Patient was recently admitted here for appendix abscess treated with IR drain and abx. Discharged on PO cipro. Serial CT imaging showed resolution of the abscess. She returns today with continued abdominal discomfort throughout lower quadrants. No fevers or chills. Passing stool. Says stool has been black, no kranthi blood. CT showed large stool burden in colon. Receives colonosocpy every two years as very strong family history of colon cancer. Hospital Course The patient requested to be discharged yesterday from the emergency room. I instructed her to take her cipro as prescribed (11 days remaining) as well as laxatives to address her conspitation. I also instructed her to see a gastroent erologist to schedule a colonoscopy [place] Home Meds Reported Medications Cariprazine HCl (Vraylar) 1.5 Mg Capsule, 1.5 MG PO DAILY, CAP 12/04/18 Montelukast Sodium* (Montelukast Sodium*) 10 Mg Tablet, 10 MG PO QHS, #30 TAB 12/04/18 Levothyroxine Sodium* (Levothyroxine Sodium*) 75 Mcg Tablet, 75 MCG PO BEFORE BREAKFAST, #30 TAB 12/04/18 Pantoprazole* (Pantoprazole*) 40 Mg Tablet.dr, 40 MG PO AC BREAKFAST, TAB 12/04/18 Lamotrigine* (Lamotrigine*) 200 Mg Tablet, 200 MG PO BID, TAB 12/04/18 Ranitidine Hcl* (Ranitidine Hcl*) 300 Mg Tablet, 300 MG PO HS, #30 TAB 12/04/18 Losartan Potassium* (Losartan Potassium*) 100 Mg Tablet, 100 MG PO DAILY, TAB 12/04/18 Venlafaxine Hcl* (Venlafaxine Hcl ER*) 150 Mg Tab.er.24, 150 MG PO BID, TAB.SA 12/04/18 Ergocalciferol (Vitamin D2) (VITAMIN D2) 50,000 Unit Capsule, 35362 UNIT PO Q SUN, CAP 12/04/18 Discontinued Scripts Ciprofloxacin Hcl* (Ciprofloxacin Hcl*) 500 Mg Tablet, 500 MG PO BID for 3 Days, #6 TAB Prov:BETITO PERRY 12/10/18 Follow-up Plan Complete antibiotics as prescribed Take laxatives daily Make an appointment [place] with a site damage prevention technician to schedule a colonoscopy Return to the emergency room if you have any concerning symptoms Primary Care Provider KIARA Avelar MD Dec 17, 2018 17:27
== END 2018-12-16 18:38 | disposition home or self-care (01) ==
LOC: E/R 12:25 → SUATTDRO 17:38 → E/R 18:38 → CANBEDREQ 18:47
PROVIDERS: ATTEND Internal Medicine
DX: K37 Unspecified appendicitis (principal); I10 Essential (primary) hypertension; E03.9 Hypothyroidism, unspecified; R94.5 Abnormal results of liver function studies; Z87.891 Personal history of nicotine dependence
CPT/HCPCS: 36415; 74177; 80053; 81003; 83690; 85025; 99285; Q9967